=== PATIENT | female | born 1985 | race American Indian/Alaskan Native ===

== ENCOUNTER 2022-06-14 08:20 | Inpatient (IN) | payer OTHER ==
[2022-06-13 11:05] LABS: Hematocrit 31.8 % (30.3-42.9); Hemoglobin 10.4 gm/dl (10.1-14.3); Mean Corpuscular HGB Conc 33 % (30-34); Mean Corpuscular Volume 86 fl (79-97); Platelet Count 225 K/mm3 (140-440); Red Blood Count 3.69 M/mm3 (3.65-5.03); Red Cell Distribution Width 14.9 % (13.2-15.2)
--- NOTE | 2022-06-14 22:25 | Ultrasound Report ---
ULTRASOUND OBSTETRIC INDICATION / CLINICAL INFORMATION: Previous , evaluate for TOLAC. - Clinical Gestational Age (GA) in weeks, days: 39, 2 TECHNIQUE: Transabdominal. COMPARISON: None available. FINDINGS: Single intrauterine . Biparietal Diameter = 9.0 cm = 36, 3 weeks, days Head Circumference = 33.4 cm = 38, 2 weeks, days Abdominal Circumference = 34.3 cm = 38, 2 weeks, days Femur Length = 7.4 cm = 37, 6 weeks, days Average Ultrasound Age (AUA) = 37, 5 weeks, days Heart Rate: 137 beats per minute. Estimated Weight in grams (if calculated): 3349 Estimated Weight Growth Percentile (if calculated): 38% Position: cephalic. Cervix: closed. Placenta: anterior and free of the os. Amniotic Fluid Volume: decreased Amniotic Fluid Index (DEE) in cm (if calculated): 5.4. Maternal Adnexa: No significant abnormality. Lower uterine segment thickness ranged from 0.6 to 0.7 cm. IMPRESSION: 1. Single, living intrauterine with estimated sonographic age of 37, 5 weeks, days. 2. Decreased amniotic fluid index. 3. Lower uterine segment thickness measurements range from 0.6 to 0.7 cm. Signer Name: Dwayne Comer MD Signed: 06/14/2022 10:20 PM Workstation Name: [id number]
[2022-06-15] MEDS ORDERED: BUTORPHANOL 2 MG/1 ML INJ IV PRN (00:21)
[2022-06-15] MEDS ORDERED: CARBOPROST TROMETHAMINE 250 MCG/1 ML INJ IM PRN (00:21)
[2022-06-15] MEDS ORDERED: METHYLERGONOVINE MALEATE 0.2 MG/ML VIAL IM PRN (00:21)
[2022-06-15] MEDS ORDERED: fentaNYL 100 MCG/2 ML INJ IV PRN (00:21)
[2022-06-15] MEDS ORDERED: TERBUTALINE 1 MG/1 ML INJ SUB-Q PRN (00:21)
[2022-06-15] MEDS ORDERED: ACETAMINOPHEN 325 MG TAB PO PRN ×2 (00:21→19:10)
--- NOTE | 2022-06-15 00:31 | History and Physical Report ---
History of Present Illness Date of examination: 06/15/22 Date of admission: 06/14/22 09:53 Chief complaint: Trial of labor after (TOLAC), Obesity, Encounter for induction of labor History of present illness: The patient is 36-year-old at 39-3/7 weeks gestation who originally presented to OB triage for an elective repeat delivery and bilateral tubal ligation yesterday. The patient's case was postponed several times. The patient was offered to have this case rescheduled or attempt a trial of labor after (TOLAC). The patient denied vaginal bleeding, leakage of fluid, or contractions. There was good movement. The patient was counseled extensively according to [employer]COG Practice Bulletin 205 guidelines. Her previous delivery was 7 years ago in [place] and was performed secondary to distress per the patient's recollection and record. There is no operative report available at this time. Ac cording to [employer] Practice Bulletin, it is reasonable to presume that her previous delivery at a low transverse uterine scar. Based on this, this patient's risk of uterine rupture if attempting TOLAC is approximately 2%. According to the [facility] vaginal after () calculator, this patient's chance of successful vaginal delivery is approximately 30%. The patient understood that there is a risk of maternal , , hemorrhage, and hysterectomy. Voicing understanding of all of these risks, the patient wished to proceed with attempting a TOLAC in hopes of a successful . The patient is admitted to labor and delivery for induction of labor and to attempt a TOLAC. Past History Past Medical History: other (Obesity) Past Surgical History: cholecystectomy, section Family/Genetic History: diabetes, hypertension Social history: no significant social history - Obstetrical History Expected Date of Delivery: 06/19/22 Actual Gestation: 39 Week(s) 3 Day(s) : 2 Para: 1 Hx # Term Pregnancies: 0 Number of Pregnancies: 0 Spontaneous Abortions: 0 Induced : 0 Number of Living Children: 1 Medications and Allergies Allergies Allergy/AdvReac Type Severity Reaction Status Date / Time No Known Allergies Allergy Verified 06/15/22 00:42 Home Medications Medication Instructions Recorded Confirmed Last Taken Type No Known Home Medications [No 06/08/22 06/08/22 Unknown History Reported Home Medications] Active Meds: Active Medications Acetaminophen (Acetaminophen 325 Mg Tab) 650 mg PO Q4H PRN PRN Reason: Pain, Mild (1-3) Butorphanol Tartrate (Butorphanol 2 Mg/1 Ml Inj) 2 mg IV Q2H PRN PRN Reason: Pain, Moderate(4-6) LABOR PAIN Carboprost Tromethamine (Carboprost Tromethamine 250 Mcg/1 Ml Inj) 250 mcg IM ONCE PRN PRN Reason: Uterine Bleeding Fentanyl (Fentanyl 100 Mcg/2 Ml Inj) 100 mcg IV Q2H PRN PRN Reason: Pain,Severe (7-10) LABOR PAIN Oxytocin/Sodium Chloride (Pitocin/Ns 30 Unit/500ml) 30 units in 500 mls @ 2 mls/hr IV TITR LUCIUS; Protocol Lactated Ringer's (Lactated Ringers) 1,000 mls @ 125 mls/hr IV DIRECT LUCIUS Oxytocin/Sodium Chloride (Pitocin/Ns 30 Unit/500ml) 30 units in 500 mls @ 40 mls/hr IV TITR LUCIUS; Protocol Isosorbide Mononitrate (Isosorbide Mononitrate 20 Mg Tab) 40 mg PO ONCE STA Stop: 06/15/22 00:26 Methylergonovine Maleate (Methylergonovine Maleate 0.2 Mg/Ml Vial) 0.2 mg IM ONCE PRN PRN Reason: Uterine Bleeding Terbutaline Sulfate (Terbutaline 1 Mg/1 Ml Inj) 0.25 mg SUB-Q ONCE PRN PRN Reason: Hyperstimulation/Hypertonicity Review of Systems All systems: negative - Vital Signs Vital signs: Vital Signs Temp Pulse Resp BP Pulse Ox 98.7 F 85 16 121/64 99 06/13/22 10:20 06/13/22 10:20 06/13/22 10:20 06/13/22 10:20 06/13/22 10:20 Temp Pulse Resp BP Pulse Ox 98.7 F 82 16 118/56 98 06/13/22 10:20 06/15/22 00:25 06/13/22 10:20 06/14/22 10:56 06/15/22 00:25 - Physical Exam Breasts: Positive: normal Cardiovascular: Regular rate Lungs: Positive: Normal air movement Abdomen: Positive: normal appearance Genitourinary (Female): Positive: normal external genitalia, normal perenium Vulva: both: normal Vagina: Positive: normal moisture Uterus: Positive: enlarged Adnexa: both: normal Anus/Rectum: Positive: normal perianal skin Extremities: Positive: normal Deep Tendon Reflex Grade: Normal +2 - Obstetrical FHR: category 1 Uterine Contraction Monitor Mode: External Cervical Dilatation: 0 Cervical Effacement Percentage: 30 station: -3 Uterine Contraction Pattern: Absent Results Result Diagrams: 06/13/22 10:30 All other labs normal. Ultrasound: report reviewed, image reviewed, other (OB Ultrasound Limited= SLIUP. Vertex. Anterior placenta. EFW= 3349 g (38th %-ile). DEE= 5.4 cm. TOÑO thickness= 6-7 mm.) Assessment and Plan - Patient Problems (1) 39 weeks gestation of Current Visit: Yes Status: Acute Plan to address problem: care is up-to-date at [facility]. The patient had a normal 1 hour glucose tolerance test. She is GBS negative. (2) Obesity affecting in third trimester, antepartum Current Visit: Yes Status: Acute Plan to address problem: BMI is 47.6. (3) Desires (vaginal after ) trial Current Visit: Yes Status: Acute Plan to address problem: The patient was counseled extensively according to [employer]G Practice Bulletin 205 guidelines. Her previous delivery was 7 years ago in [place] and was performed secondary to distress per the patient's recollection and record. There is no operative report available at this time. According to [employer] Practice Bulletin, it is reasonable to presume that her previous delivery at a low transverse uterine scar. Based on this, this patient's risk of uterine rupture if attempting TOLAC is approximately 2%. According to the [facility] vaginal after () calculator, this patient's chance of successful vaginal delivery is approximately 30%. The patient understood that there is a risk of maternal , , hemorrhage, and hysterectomy. Voicing understanding of all of these risks, the patient wished to proceed with attempting a TOLAC in hopes of a successful . She signed the consent form. (4) Encounter for elective induction of labor Current Visit: Yes Status: Acute Plan to address problem: Ripen cervix with Cook's catheter and low-dose Pitocin. Augment cervical ripening with intravaginal Monoket. (5) AMA (advanced maternal age) multigravida 35+ Current Visit: Yes Status: Acute Plan to address problem: The patient declined to be seen by MFM. Noninvasive testing was low risk.
[2022-06-15] MEDS ORDERED: OXYTOCIN DRIP 30 UNITS/500 ML BAG IV SCH ×3 (01:00→20:00)
[2022-06-15 02:15] LABS: Hematocrit 33.8 % (30.3-42.9); Mean Corpuscular HGB Conc 33 % (30-34); Mean Corpuscular Volume 85 fl (79-97); Platelet Count 229 K/mm3 (140-440); Red Blood Count 3.96 M/mm3 (3.65-5.03); Red Cell Distribution Width 15.2 % (13.2-15.2)
--- NOTE | 2022-06-15 11:30 | Progress Note ---
Assessment and Plan A: IUP @ 39 Weeks Category I Tracing Previous X1 Maternal Obesity AMA GBS Negative P: [place] Bulb Out Start Pitocin Augmentation Subjective - Subjective Date of service: 06/15/22 Patient reports: movement normal Objective - Vital Signs Vital Signs: Vital Signs - 12hr 06/14/22 06/14/22 06/14/22 23:27 23:30 23:32 Temperature Pulse Rate 86 84 83 Respiratory Rate Blood Pressure O2 Sat by Pulse 94 95 94 Oximetry 06/14/22 06/14/22 06/14/22 23:35 23:40 23:43 Temperature Pulse Rate 84 86 81 Respiratory Rate Blood Pressure O2 Sat by Pulse 96 95 94 Oximetry 06/14/22 06/14/22 06/14/22 23:45 23:50 23:55 Temperature Pulse Rate 82 87 86 Respiratory Rate Blood Pressure O2 Sat by Pulse 100 99 99 Oximetry 06/15/22 06/15/22 06/15/22 00:00 00:05 00:10 Temperature Pulse Rate 83 80 88 Respiratory Rate Blood Pressure O2 Sat by Pulse 99 99 98 Oximetry 06/15/22 06/15/22 06/15/22 00:15 00:20 00:25 Temperature Pulse Rate 79 82 82 Respiratory Rate Blood Pressure O2 Sat by Pulse 99 98 98 Oximetry 06/15/22 06/15/22 06/15/22 00:30 00:35 00:40 Temperature Pulse Rate 88 86 84 Respiratory Rate Blood Pressure O2 Sat by Pulse 98 98 98 Oximetry 06/15/22 06/15/22 06/15/22 00:45 00:50 00:55 Temperature Pulse Rate 78 83 88 Respiratory Rate Blood Pressure O2 Sat by Pulse 99 97 98 Oximetry 06/15/22 06/15/22 06/15/22 01:00 01:05 01:10 Temperature Pulse Rate 94 H 82 90 Respiratory Rate Blood Pressure O2 Sat by Pulse 96 98 98 Oximetry 06/15/22 06/15/22 06/15/22 01:15 01:20 01:25 Temperature Pulse Rate 94 H 85 94 H Respiratory 14 Rate Blood Pressure O2 Sat by Pulse 98 99 100 Oximetry 06/15/22 06/15/22 06/15/22 01:30 01:35 01:40 Temperature Pulse Rate 84 85 83 Respiratory Rate Blood Pressure O2 Sat by Pulse 99 98 97 Oximetry 08/06/15/22 06/15/22 01:45 07:02 07:07 Temperature Pulse Rate 86 93 H 98 H Respiratory Rate Blood Pressure O2 Sat by Pulse 98 98 96 Oximetry 06/15/22 06/15/22 06/15/22 07:11 07:12 07:17 Temperature Pulse Rate 96 H 100 H 102 H Respiratory Rate Blood Pressure 96/55 O2 Sat by Pulse 98 98 Oximetry 06/15/22 06/15/22 06/15/22 07:22 07:27 07:32 Temperature Pulse Rate 88 86 93 H Respiratory Rate Blood Pressure O2 Sat by Pulse 98 100 100 Oximetry 06/15/22 06/15/22 06/15/22 07:37 07:41 07:42 Temperature Pulse Rate 90 91 H 90 Respiratory Rate Blood Pressure 99/60 O2 Sat by Pulse 100 98 Oximetry 06/15/22 06/15/22 06/15/22 07:47 07:48 07:51 Temperature Pulse Rate 96 H 98 H 87 Respiratory Rate Blood Pressure 102/62 O2 Sat by Pulse 94 91 Oximetry 06/15/22 06/15/22 06/15/22 07:52 07:53 07:57 Temperature Pulse Rate 94 H 95 H 89 Respiratory Rate Blood Pressure O2 Sat by Pulse 99 85 100 Oximetry 06/15/22 06/15/22 06/15/22 07:58 08:02 08:07 Temperature 98.2 F Pulse Rate 94 H 90 Respiratory 16 Rate Blood Pressure O2 Sat by Pulse 100 99 Oximetry 06/15/22 06/15/22 06/15/22 08:11 08:12 08:17 Temperature Pulse Rate 89 95 H 88 Respiratory Rate Blood Pressure 103/56 O2 Sat by Pulse 100 99 Oximetry 06/15/22 06/15/22 06/15/22 08:22 08:27 08:32 Temperature Pulse Rate 91 H 97 H 92 H Respiratory Rate Blood Pressure O2 Sat by Pulse 98 96 98 Oximetry 06/15/22 06/15/22 06/15/22 08:37 08:41 08:42 Temperature Pulse Rate 90 98 H 86 Respiratory Rate Blood Pressure 97/58 O2 Sat by Pulse 96 96 Oximetry 06/15/22 06/15/22 06/15/22 08:47 08:52 08:53 Temperature Pulse Rate 94 H 102 H 109 H Respiratory Rate Blood Pressure O2 Sat by Pulse 96 98 92 Oximetry 06/15/22 06/15/22 06/15/22 08:57 09:02 09:04 Temperature Pulse Rate 104 H 96 H 103 H Respiratory Rate Blood Pressure O2 Sat by Pulse 98 98 94 Oximetry 06/15/22 06/15/22 06/15/22 09:07 09:12 09:16 Temperature Pulse Rate 96 H 98 H 104 H Respiratory Rate Blood Pressure 100/60 O2 Sat by Pulse 97 98 91 Oximetry 06/15/22 06/15/22 06/15/22 09:17 09:22 09:27 Temperature Pulse Rate 102 H 94 H 89 Respiratory Rate Blood Pressure O2 Sat by Pulse 98 96 98 Oximetry 06/15/22 06/15/22 06/15/22 09:32 09:37 09:42 Temperature Pulse Rate 94 H 92 H 95 H Respiratory Rate Blood Pressure O2 Sat by Pulse 98 100 99 Oximetry 06/15/22 06/15/22 06/15/22 09:49 09:54 09:59 Temperature Pulse Rate 34 L 103 H 92 H Respiratory Rate Blood Pressure O2 Sat by Pulse 89 98 98 Oximetry 06/15/22 06/15/22 06/15/22 10:04 10:09 10:12 Temperature Pulse Rate 110 H 89 105 H Respiratory Rate Blood Pressure 117/59 O2 Sat by Pulse 97 97 Oximetry 06/15/22 06/15/22 06/15/22 10:14 10:18 10:19 Temperature Pulse Rate 90 104 H 94 H Respiratory Rate Blood Pressure O2 Sat by Pulse 98 92 98 Oximetry 06/15/22 06/15/22 06/15/22 10:24 10:29 10:34 Temperature Pulse Rate 90 105 H 107 H Respiratory Rate Blood Pressure O2 Sat by Pulse 98 98 97 Oximetry 06/15/22 06/15/22 06/15/22 10:39 10:42 10:44 Temperature Pulse Rate 107 H 102 H 98 H Respiratory Rate Blood Pressure 117/65 O2 Sat by Pulse 97 97 Oximetry 06/15/22 06/15/22 06/15/22 10:49 10:54 10:59 Temperature Pulse Rate 95 H 95 H 102 H Respiratory Rate Blood Pressure O2 Sat by Pulse 97 97 97 Oximetry 06/15/22 06/15/22 06/15/22 11:04 11:09 11:14 Temperature Pulse Rate 97 H 92 H 100 H Respiratory Rate Blood Pressure O2 Sat by Pulse 98 97 98 Oximetry 06/15/22 06/15/22 11:19 11:24 Temperature Pulse Rate 85 90 Respiratory Rate Blood Pressure O2 Sat by Pulse 100 97 Oximetry - Exam Breasts: normal Cardiovascular: Regular rate Lungs: Normal air movement Abdomen: Present: normal appearance, soft Uterus: Present: normal, firm FHR: category 1 Uterine Contraction Monitor Mode: External Cervical Dilatation: 5 (Intact; Vtx) Cervical Effacement Percentage: 60 station: -2 Uterine Contraction Pattern: Irregular Uterine Tone Measurement Phase: Resting Uterine Contraction Intensity: Mild - Labs Labs: Laboratory Results - last 24 hr 06/14/22 06/15/22 11:35 01:36 WBC 4.5 RBC 3.96 Hgb 11.0 Hct 33.8 MCV 85 MCH 28 MCHC 33 RDW 15.2 Plt Count 229 Blood Type AB POSITIVE Antibody Screen Negative
[2022-06-15] MEDS: LACTATED RINGERS 1,000 ML IV SCH ×3 (12:41→21:28)
[2022-06-15] MEDS ORDERED: HYDROcodone/ACETAMINOPHEN 7.5-325MG TAB PO SCH (14:00)
--- NOTE | 2022-06-15 14:53 | Progress Note ---
Assessment and Plan A: IUP @ 39 Weeks Category II Tracing Thick Meconium Stained Fluids Previous X1; Requesting Repeat Maternal Obesity AMA GBS Negative P: Internals x 2 Placed Stop Pitocin Augmentation Consult Dr. Montez for Repeat Subjective - Subjective Date of service: 06/15/22 Patient reports: movement normal, other (Patient Requesting Repeat C- section; States everything is happening like her last labor: Meconium and isolated late decels) Objective - Vital Signs Vital Signs: Vital Signs - 12hr 06/15/22 06/15/22 06/15/22 07:02 07:07 07:11 Temperature Pulse Rate 93 H 98 H 96 H Respiratory Rate Blood Pressure 96/55 O2 Sat by Pulse 98 96 Oximetry 06/15/22 06/15/22 06/15/22 07:12 07:17 07:22 Temperature Pulse Rate 100 H 102 H 88 Respiratory Rate Blood Pressure O2 Sat by Pulse 98 98 98 Oximetry 06/15/22 06/15/22 06/15/22 07:27 07:32 07:37 Temperature Pulse Rate 86 93 H 90 Respiratory Rate Blood Pressure O2 Sat by Pulse 100 100 100 Oximetry 06/15/22 06/15/22 06/15/22 07:41 07:42 07:47 Temperature Pulse Rate 91 H 90 96 H Respiratory Rate Blood Pressure 99/60 O2 Sat by Pulse 98 94 Oximetry 06/15/22 06/15/22 06/15/22 07:48 07:51 07:52 Temperature Pulse Rate 98 H 87 94 H Respiratory Rate Blood Pressure 102/62 O2 Sat by Pulse 91 99 Oximetry 06/15/22 06/15/22 06/15/22 07:53 07:57 07:58 Temperature 98.2 F Pulse Rate 95 H 89 Respiratory 16 Rate Blood Pressure O2 Sat by Pulse 85 100 Oximetry 06/15/22 06/15/22 06/15/22 08:02 08:07 08:11 Temperature Pulse Rate 94 H 90 89 Respiratory Rate Blood Pressure 103/56 O2 Sat by Pulse 100 99 Oximetry 06/15/22 06/15/22 06/15/22 08:12 08:17 08:22 Temperature Pulse Rate 95 H 88 91 H Respiratory Rate Blood Pressure O2 Sat by Pulse 100 99 98 Oximetry 08/31/22 08/31/22 08/31/22 08:27 08:32 08:37 Temperature Pulse Rate 97 H 92 H 90 Respiratory Rate Blood Pressure O2 Sat by Pulse 96 98 96 Oximetry 06/15/22 06/15/22 06/15/22 08:41 08:42 08:47 Temperature Pulse Rate 98 H 86 94 H Respiratory Rate Blood Pressure 97/58 O2 Sat by Pulse 96 96 Oximetry 06/15/22 06/15/22 06/15/22 08:52 08:53 08:57 Temperature Pulse Rate 102 H 109 H 104 H Respiratory Rate Blood Pressure O2 Sat by Pulse 98 92 98 Oximetry 06/15/22 06/15/22 06/15/22 09:02 09:04 09:07 Temperature Pulse Rate 96 H 103 H 96 H Respiratory Rate Blood Pressure O2 Sat by Pulse 98 94 97 Oximetry 06/15/22 06/15/22 06/15/22 09:12 09:16 09:17 Temperature Pulse Rate 98 H 104 H 102 H Respiratory Rate Blood Pressure 100/60 O2 Sat by Pulse 98 91 98 Oximetry 06/15/22 06/15/22 06/15/22 09:22 09:27 09:32 Temperature Pulse Rate 94 H 89 94 H Respiratory Rate Blood Pressure O2 Sat by Pulse 96 98 98 Oximetry 06/15/22 06/15/22 06/15/22 09:37 09:42 09:49 Temperature Pulse Rate 92 H 95 H 34 L Respiratory Rate Blood Pressure O2 Sat by Pulse 100 99 89 Oximetry 06/15/22 06/15/22 06/15/22 09:54 09:59 10:04 Temperature Pulse Rate 103 H 92 H 110 H Respiratory Rate Blood Pressure O2 Sat by Pulse 98 98 97 Oximetry 06/15/22 06/15/22 06/15/22 10:09 10:12 10:14 Temperature Pulse Rate 89 105 H 90 Respiratory Rate Blood Pressure 117/59 O2 Sat by Pulse 97 98 Oximetry 06/15/22 06/15/22 06/15/22 10:18 10:19 10:24 Temperature Pulse Rate 104 H 94 H 90 Respiratory Rate Blood Pressure O2 Sat by Pulse 92 98 98 Oximetry 06/15/22 06/15/22 06/15/22 10:29 10:34 10:39 Temperature Pulse Rate 105 H 107 H 107 H Respiratory Rate Blood Pressure O2 Sat by Pulse 98 97 97 Oximetry 06/15/22 06/15/22 06/15/22 10:42 10:44 10:49 Temperature Pulse Rate 102 H 98 H 95 H Respiratory Rate Blood Pressure 117/65 O2 Sat by Pulse 97 97 Oximetry 06/15/22 06/15/22 06/15/22 10:54 10:59 11:04 Temperature Pulse Rate 95 H 102 H 97 H Respiratory Rate Blood Pressure O2 Sat by Pulse 97 97 98 Oximetry 06/15/22 06/15/22 06/15/22 11:09 11:14 11:19 Temperature Pulse Rate 92 H 100 H 85 Respiratory Rate Blood Pressure O2 Sat by Pulse 97 98 100 Oximetry 06/15/22 06/15/22 06/15/22 11:24 11:29 11:30 Temperature Pulse Rate 90 54 L Respiratory Rate Blood Pressure O2 Sat by Pulse 97 78 L 78 L Oximetry 06/15/22 06/15/22 06/15/22 11:34 11:35 11:39 Temperature Pulse Rate 98 H 97 H 101 H Respiratory Rate Blood Pressure O2 Sat by Pulse 98 90 98 Oximetry 06/15/22 06/15/22 06/15/22 11:44 11:49 11:54 Temperature Pulse Rate 94 H 101 H 99 H Respiratory Rate Blood Pressure 105/62 O2 Sat by Pulse 98 97 97 Oximetry 06/15/22 06/15/22 06/15/22 11:59 12:04 12:06 Temperature Pulse Rate 99 H 90 93 H Respiratory Rate Blood Pressure O2 Sat by Pulse 95 95 94 Oximetry 06/15/22 06/15/22 06/15/22 12:09 12:11 12:13 Temperature Pulse Rate 92 H 92 H 92 H Respiratory Rate Blood Pressure 101/63 O2 Sat by Pulse 95 94 Oximetry 06/15/22 06/15/22 06/15/22 12:14 12:19 12:24 Temperature Pulse Rate 89 94 H 89 Respiratory Rate Blood Pressure O2 Sat by Pulse 96 96 96 Oximetry 06/15/22 06/15/22 06/15/22 12:29 12:34 12:39 Temperature Pulse Rate 89 89 90 Respiratory Rate Blood Pressure O2 Sat by Pulse 99 96 98 Oximetry 06/15/22 06/15/22 06/15/22 12:42 12:44 12:49 Temperature Pulse Rate 84 88 92 H Respiratory Rate Blood Pressure 112/68 O2 Sat by Pulse 100 97 Oximetry 08/06/15/22 06/15/22 12:54 12:59 13:04 Temperature Pulse Rate 86 85 80 Respiratory Rate Blood Pressure O2 Sat by Pulse 97 98 98 Oximetry 06/15/22 06/15/22 06/15/22 13:09 13:12 13:14 Temperature Pulse Rate 80 77 81 Respiratory Rate Blood Pressure 108/61 O2 Sat by Pulse 98 95 Oximetry 06/15/22 06/15/22 06/15/22 13:15 13:19 13:23 Temperature Pulse Rate 82 83 82 Respiratory Rate Blood Pressure O2 Sat by Pulse 94 95 92 Oximetry 06/15/22 06/15/22 06/15/22 13:24 13:28 13:29 Temperature Pulse Rate 76 82 83 Respiratory Rate Blood Pressure O2 Sat by Pulse 98 94 95 Oximetry 06/15/22 06/15/22 06/15/22 13:34 13:39 13:42 Temperature Pulse Rate 83 79 78 Respiratory Rate Blood Pressure 109/60 O2 Sat by Pulse 93 98 Oximetry 06/15/22 06/15/22 06/15/22 13:44 13:46 13:49 Temperature Pulse Rate 82 80 85 Respiratory Rate Blood Pressure O2 Sat by Pulse 96 93 95 Oximetry 06/15/22 06/15/22 06/15/22 13:54 13:55 13:59 Temperature Pulse Rate 85 85 85 Respiratory Rate Blood Pressure O2 Sat by Pulse 96 93 97 Oximetry 06/15/22 06/15/22 06/15/22 14:04 14:09 14:14 Temperature Pulse Rate 79 84 81 Respiratory Rate Blood Pressure O2 Sat by Pulse 98 98 99 Oximetry 06/15/22 06/15/22 06/15/22 14:19 14:24 14:29 Temperature Pulse Rate 78 90 86 Respiratory Rate Blood Pressure O2 Sat by Pulse 96 98 98 Oximetry 06/15/22 14:31 Temperature Pulse Rate 78 Respiratory Rate Blood Pressure 109/65 O2 Sat by Pulse Oximetry - Exam Breasts: normal Cardiovascular: Regular rate Lungs: Clear to auscultation, Normal air movement Abdomen: Present: normal appearance, soft, normal bowel sounds Uterus: Present: normal, firm, fundal height above umbilicus FHR: category 2 FHR comments: FHR: 148, moderate varability, +isolated late decels, +accels Uterine Contraction Monitor Mode: Internal Cervical Dilatation: 5 (Small amount of thick brown meconium stained fluids upon AROM at 1442) Cervical Effacement Percentage: 60 station: -2 Uterine Contraction Pattern: Irregular Uterine Tone Measurement Phase: Resting Uterine Contraction Intensity: Mild Extremities: normal - Labs Labs: Laboratory Results - last 24 hr 06/15/22 01:36 WBC 4.5 RBC 3.96 Hgb 11.0 Hct 33.8 MCV 85 MCH 28 MCHC 33 RDW 15.2 Plt Count 229
[2022-06-15] MEDS ORDERED: METOCLOPRAMIDE 10 MG/2 ML INJ IV NR (16:00)
[2022-06-15] MEDS ORDERED: ceFAZolin/STERILE WATER 2 GM/20 ML SYRINGE IV NR (16:00)
[2022-06-15] MEDS ORDERED: BICITRA ORAL LIQD 30ML PO SCH (16:00)
[2022-06-15] MEDS ORDERED: ePHEDrine SULFATE 50 MG/1 ML INJ ONE (16:27)
[2022-06-15] MEDS ORDERED: PHENYLEPHRINE/NS 1,000 MCG/10 ML SYRINGE (OR USE) IV ONE (16:27)
[2022-06-15] MEDS ORDERED: ONDANSETRON 4 MG/2 ML INJ ONE (16:27)
[2022-06-15] MEDS ORDERED: BUPIVACAINE/PF (0.5%) 5 MG/1 ML 30 ML VIAL INFILTRATI ONE (16:28)
[2022-06-15] MEDS ORDERED: FAMOTIDINE 20 MG/2 ML INJ IV SCH (16:30)
[2022-06-15] MEDS ORDERED: propofoL 200 MG/20 ML VIAL IV ONE ×2 (17:24→19:12)
[2022-06-15] MEDS ORDERED: SUCCINYLCHOLINE CHLORIDE 200 MG/10 ML INJ MDV ONE ×2 (17:25→19:12)
[2022-06-15] MEDS ORDERED: WATER FOR IRRIG STERILE 1,500 ML BOTTLE IR ONE (17:45)
[2022-06-15] MEDS ORDERED: SODIUM CHLORIDE 0.9% IRR 1,500 ML BOTTLE IR ONE (17:45)
[2022-06-15] MEDS ORDERED: LACTATED RINGERS 1,000 ML ONE ×2 (18:15→18:49)
[2022-06-15] MEDS ORDERED: fentaNYL 100 MCG/2 ML INJ ONE (18:22)
[2022-06-15] MEDS ORDERED: IBUPROFEN 600 MG TAB PO PRN (19:10)
[2022-06-15] MEDS ORDERED: LANOLIN/ZINC/DIMETHICONE (LANSINOH) 7 GM TP PRN (19:10)
[2022-06-15] MEDS ORDERED: WITCH HAZEL/ GLYCERIN PAD TP PRN (19:10)
[2022-06-15] MEDS ORDERED: NALOXONE 0.4 MG/1 ML INJ IV PRN ×2 (19:10→20:26)
[2022-06-15] MEDS ORDERED: MORPHINE 4 MG/1 ML INJ IV PRN ×2 (19:10→20:26)
[2022-06-15] MEDS ORDERED: MORPHINE 2 MG/1 ML INJ IV PRN (19:10)
[2022-06-15] MEDS ORDERED: HYDROcodone/ACETAMINOPHEN 5-325 MG TAB PO PRN (19:10)
[2022-06-15] MEDS ORDERED: PROMETHAZINE 25 MG RECT SUPP PR PRN ×2 (19:10→20:26)
[2022-06-15] MEDS ORDERED: SENNOSIDES 8.6 MG TAB PO PRN (19:10)
[2022-06-15] MEDS ORDERED: KETOROLAC 30 MG/1 ML INJ IV PRN ×2 (19:10)
[2022-06-15] MEDS ORDERED: SIMETHICONE 80 MG CHEW TAB PO PRN (19:10)
[2022-06-15] MEDS ORDERED: ONDANSETRON 4 MG/2 ML INJ IV PRN ×2 (19:10→20:26)
[2022-06-15] MEDS ORDERED: MAGNESIUM HYDROXIDE (MOM) ORAL LIQD UDC PO PRN (19:10)
--- NOTE | 2022-06-15 19:22 | Operative Report ---
Operative Report Operative Report: Date of surgery: 06/15/2022 Preoperative diagnoses: Reviewed section, 39 weeks gestation, failed attempt at , voluntary request for tubal sterilization, peritoneal adhesions Postoperative diagnoses: The same. Operation: Lower segment transverse delivery, lysis of adhesions, bilateral salpingectomy. Surgeon:Brendan Reyes MD Financial Compliance Examiner: Brissa Guillermo CRNA Anesthesia: Spinal block/general anesthesia Estimated blood loss: 400 mL Complications: None Findings: Live baby boy in vertex. Apgars 7/9. weight 6 pounds 15 ounces. The anterior aspect of the uterus was adherent to the anterior parietal peritoneum midway between the umbilicus and the symphysis pubis. The uterus, ovaries and fallopian tubes were grossly normal. There were no other pathologies within the lower abdomen and pelvis. Procedure in detail: The patient was taken to the operating room and given a spinal block. The bulk driver had to intubate the patient due to a high spinal block. Patient was placed in the straight supine position and a Hutchinson catheter was inserted. The patient was prepped in the abdomen. The drapes were placed. A timeout was done. With the go ahead from the bulk driver, a Pfannenstiel incision was made. This incision was carried across the subcutaneous layer to the fascia which was also divided transversely. The recti abdominis muscle flaps were stripped from the fascia using a combination of blunt and sharp dissections. The muscles were in the midline to gain access to the anterior parietal peritoneum which was divided after excluding any underlying viscera. The access to the peritoneal cavity was then widened by manual stretching. The bladder blade was applied. The utero vesicle peritoneal flap was divided transversely allowing the bladder to be displaced caudally. The uterine incision was placed in the lower segment transversely. The uterine incision was carried to the decidual layer. The uterine incision was extended on both sides using the bandage scissors. The amniotic sac was ruptured with clear fluid. The head was lifted out of the false maternal pelvis and delivered through the incision using fundal pressure. The airways were bulb suctioned beginning with the mouth. Continuing fundal pressure combined with traction on the mandibular processes of the jaw delivered the rest of the baby. The umbilical cord was double clamped and divided. The baby was carefully transferred to the pediatric team. The placenta was manually removed from the uterine cavity. The uterine cavity was explored and was empty of any placental remnants. The uterine incision was repaired in 2 layers with #1 Vicryl. The surgical line on the uterus was hemostatic. Each fallopian tube was excised from the fimbrial end to the cornua after pedicles of the mesosalpinges had been an isolated, tied off and divided. Hemostasis was checked multiple times was great. The taut band of adhesions described above was divided with the Bovie and the pedicles were hemostatic Blood and clots were cleared from the peritoneal cavity. The anterior parietal peritoneum was repaired with #1 Vicryl. The fascia was repaired with #1 Vicryl. The subcutaneous layer was made hemostatic using the Bovie before the skin was closed subcuticularly with 4-0 Vicryl. There were no complications. The estimated blood loss was 400 mL. All sponges and instrument counts were correct. Patient was safely transferred to the recovery room.
--- NOTE | 2022-06-15 19:33 | History and Physical Report ---
History of Present Illness Date of admission: 06/14/22 09:53 Past History Social history: no significant social history Medications and Allergies Allergies Allergy/AdvReac Type Severity Reaction Status Date / Time No Known Allergies Allergy Verified 06/15/22 00:42 Home Medications Medication Instructions Recorded Confirmed Last Taken Type No Known Home Medications [No 06/08/22 06/08/22 Unknown History Reported Home Medications] Active Meds: Active Medications Acetaminophen (Acetaminophen 325 Mg Tab) 650 mg PO Q4H PRN PRN Reason: Fever >100.5/SINGH Hydrocodone Bitart/Acetaminophen (Hydrocodone/Acetaminophen 5-325 Mg Tab) 1 each PO Q6H PRN PRN Reason: Pain, Moderate (4-6) Butorphanol Tartrate (Butorphanol 2 Mg/1 Ml Inj) 2 mg IV Q2H PRN PRN Reason: Pain, Moderate(4-6) LABOR PAIN Carboprost Tromethamine (Carboprost Tromethamine 250 Mcg/1 Ml Inj) 250 mcg IM ONCE PRN PRN Reason: Uterine Bleeding Fentanyl (Fentanyl 100 Mcg/2 Ml Inj) 100 mcg IV Q2H PRN PRN Reason: Pain,Severe (7-10) LABOR PAIN Oxytocin/Sodium Chloride (Pitocin/Ns 30 Unit/500ml) 30 units in 500 mls @ 2 mls/hr IV TITR LUCIUS; Protocol Last Admin: 06/15/22 12:30 Dose: 2 ml/hr, 2 mls/hr Lactated Ringer's (Lactated Ringers) 1,000 mls @ 125 mls/hr IV DIRECT LUCIUS Last Admin: 06/15/22 16:16 Dose: 125 mls/hr Oxytocin/Sodium Chloride (Pitocin/Ns 30 Unit/500ml) 30 units in 500 mls @ 40 mls/hr IV TITR LUCIUS; Protocol Oxytocin/Sodium Chloride (Pitocin/Ns 30 Unit/500ml) 30 units in 500 mls @ 40 mls/hr IV TITR LUCIUS; Protocol Cefazolin Sodium (Ancef/Ns 1 Gm/50 Ml) 1 gm in 50 mls @ 100 mls/hr IV Q8H LUCIUS Stop: 06/16/22 08:29 Ibuprofen (Ibuprofen 600 Mg Tab) 600 mg PO Q6H PRN PRN Reason: Pain, Mild (1-3) Ibuprofen (Ibuprofen 800 Mg Tab) 800 mg PO Q6H PRN PRN Reason: Pain, Moderate (4-6) Ketorolac Tromethamine (Ketorolac 30 Mg/1 Ml Inj) 15 mg IV Q6H PRN PRN Reason: Pain, Mild (1-3) Stop: 06/20/22 19:09 Ketorolac Tromethamine (Ketorolac 30 Mg/1 Ml Inj) 30 mg IV Q6H PRN PRN Reason: Pain, Moderate (4-6) Stop: 06/20/22 19:09 Magnesium Hydroxide (Magnesium Hydroxide (Mom) Oral Liqd Udc) 30 ml PO QHS PRN PRN Reason: Constip Unrelieved By Senna Methylergonovine Maleate (Methylergonovine Maleate 0.2 Mg/Ml Vial) 0.2 mg IM ONCE PRN PRN Reason: Uterine Bleeding Morphine Sulfate (Morphine 2 Mg/1 Ml Inj) 2 mg IV Q4H PRN PRN Reason: Pain, Moderate (4-6) Morphine Sulfate (Morphine 4 Mg/1 Ml Inj) 4 mg IV Q4H PRN PRN Reason: Pain , Severe (7-10) Multi-Ingredient Ointment (Lanolin/Zinc/Dimethicone (Lansinoh) 7 Gm) 1 applic TP PRN PRN PRN Reason: dryness/cracking Multivitamins/Iron/Calcium ( Oeh62-Ja Fumarate-Folic Acid Vit Tab) 1 each PO QDAY LUCIUS Naloxone HCl (Naloxone 0.4 Mg/1 Ml Inj) 0.1 mg IV Q2MIN PRN PRN Reason: Res Rate </= 8 or 02 SAT < 92% Ondansetron HCl (Ondansetron 4 Mg/2 Ml Inj) 4 mg IV Q8H PRN PRN Reason: Nausea And Vomiting Promethazine HCl (Promethazine 25 Mg Rect Supp) 25 mg GA Q6H PRN PRN Reason: N/V IF NPO AND NO IV ACCESS Senna (Sennosides 8.6 Mg Tab) 17.2 mg PO QHS PRN PRN Reason: Constipation Simethicone (Simethicone 80 Mg Chew Tab) 80 mg PO Q6H PRN PRN Reason: Gas pain Sodium Chloride (Sodium Chloride 0.9% 10 Ml Flush Syringe) 10 ml IV PRN LUCIUS Terbutaline Sulfate (Terbutaline 1 Mg/1 Ml Inj) 0.25 mg SUB-Q ONCE PRN PRN Reason: Hyperstimulation/Hypertonicity Witch Madiha/Glycerin (Witch Madiha/ Glycerin Pad) 1 each TP PRN PRN PRN Reason: Hemorrhoids/cleansing/soothing Exam - Constitutional Vitals: Temp Pulse Resp BP Pulse Ox 98.2 F 101 H 16 92/55 94 06/15/22 07:58 06/15/22 16:56 06/15/22 07:58 06/15/22 16:31 06/15/22 16:56 Results - Labs CBC & Chem 7: 06/15/22 01:36
--- NOTE | 2022-06-15 19:38 | Consultation ---
History of Present Illness - Reason for Consult Consult date: 06/15/22 Acute Respiratory failure Requesting physician: SHARRON JIMENEZ - History of Present Illness 36 YO Female with Obesity S/P C Section admitted directly to [facility]. Patient was undergoing spinal anesthesia in preparation for section. Shortly after her spinal anesthesia was administered the patient reported shortness of breath. Patient found to have a pulse oximetry in the 80s. Patient's subsequently intubated and placed on ventilatory support. Patient extubated and found to have respiratory distress. Patient placed on supplemental oxygen with mild improvement in symptoms. Patient admitted directly to ICU due to increased risk of worsening symptoms after medical stabilization. No reported nursing events. No reports of fever, chills, chest pain, palpitation, adductive cough, skin rash, recent contact, known exposure to COVID-19. Past History Past Medical History: other (see hpi) Past Surgical History: cholecystectomy, Social history: no significant social history Family history: hypertension Medications and Allergies Allergies Allergy/AdvReac Type Severity Reaction Status Date / Time No Known Allergies Allergy Verified 06/15/22 00:42 Home Medications Medication Instructions Recorded Confirmed Last Taken Type No Known Home Medications [No 06/08/22 06/08/22 Unknown History Reported Home Medications] Active Meds: Active Medications Acetaminophen (Acetaminophen 325 Mg Tab) 650 mg PO Q4H PRN PRN Reason: Fever >100.5/SINGH Hydrocodone Bitart/Acetaminophen (Hydrocodone/Acetaminophen 5-325 Mg Tab) 1 each PO Q6H PRN PRN Reason: Pain, Moderate (4-6) Butorphanol Tartrate (Butorphanol 2 Mg/1 Ml Inj) 2 mg IV Q2H PRN PRN Reason: Pain, Moderate(4-6) LABOR PAIN Carboprost Tromethamine (Carboprost Tromethamine 250 Mcg/1 Ml Inj) 250 mcg IM ONCE PRN PRN Reason: Uterine Bleeding Fentanyl (Fentanyl 100 Mcg/2 Ml Inj) 100 mcg IV Q2H PRN PRN Reason: Pain,Severe (7-10) LABOR PAIN Oxytocin/Sodium Chloride (Pitocin/Ns 30 Unit/500ml) 30 units in 500 mls @ 2 mls/hr IV TITR LUCIUS; Protocol Last Admin: 06/15/22 12:30 Dose: 2 ml/hr, 2 mls/hr Lactated Ringer's (Lactated Ringers) 1,000 mls @ 125 mls/hr IV DIRECT LUCIUS Last Admin: 06/15/22 16:16 Dose: 125 mls/hr Oxytocin/Sodium Chloride (Pitocin/Ns 30 Unit/500ml) 30 units in 500 mls @ 40 mls/hr IV TITR LUCIUS; Protocol Oxytocin/Sodium Chloride (Pitocin/Ns 30 Unit/500ml) 30 units in 500 mls @ 40 mls/hr IV TITR LUCIUS; Protocol Cefazolin Sodium (Ancef/Ns 1 Gm/50 Ml) 1 gm in 50 mls @ 100 mls/hr IV Q8H LUCIUS Stop: 06/16/22 08:29 Ibuprofen (Ibuprofen 600 Mg Tab) 600 mg PO Q6H PRN PRN Reason: Pain, Mild (1-3) Ibuprofen (Ibuprofen 800 Mg Tab) 800 mg PO Q6H PRN PRN Reason: Pain, Moderate (4-6) Ketorolac Tromethamine (Ketorolac 30 Mg/1 Ml Inj) 15 mg IV Q6H PRN PRN Reason: Pain, Mild (1-3) Stop: 06/20/22 19:09 Ketorolac Tromethamine (Ketorolac 30 Mg/1 Ml Inj) 30 mg IV Q6H PRN PRN Reason: Pain, Moderate (4-6) Stop: 06/20/22 19:09 Magnesium Hydroxide (Magnesium Hydroxide (Mom) Oral Liqd Udc) 30 ml PO QHS PRN PRN Reason: Constip Unrelieved By Senna Methylergonovine Maleate (Methylergonovine Maleate 0.2 Mg/Ml Vial) 0.2 mg IM ONCE PRN PRN Reason: Uterine Bleeding Morphine Sulfate (Morphine 2 Mg/1 Ml Inj) 2 mg IV Q4H PRN PRN Reason: Pain, Moderate (4-6) Morphine Sulfate (Morphine 4 Mg/1 Ml Inj) 4 mg IV Q4H PRN PRN Reason: Pain , Severe (7-10) Multi-Ingredient Ointment (Lanolin/Zinc/Dimethicone (Lansinoh) 7 Gm) 1 applic TP PRN PRN PRN Reason: dryness/cracking Multivitamins/Iron/Calcium ( Vws52-Dc Fumarate-Folic Acid Vit Tab) 1 ea ch PO QDAY LUCIUS Naloxone HCl (Naloxone 0.4 Mg/1 Ml Inj) 0.1 mg IV Q2MIN PRN PRN Reason: Res Rate </= 8 or 02 SAT < 92% Ondansetron HCl (Ondansetron 4 Mg/2 Ml Inj) 4 mg IV Q8H PRN PRN Reason: Nausea And Vomiting Promethazine HCl (Promethazine 25 Mg Rect Supp) 25 mg AL Q6H PRN PRN Reason: N/V IF NPO AND NO IV ACCESS Senna (Sennosides 8.6 Mg Tab) 17.2 mg PO QHS PRN PRN Reason: Constipation Simethicone (Simethicone 80 Mg Chew Tab) 80 mg PO Q6H PRN PRN Reason: Gas pain Sodium Chloride (Sodium Chloride 0.9% 10 Ml Flush Syringe) 10 ml IV PRN LUCIUS Terbutaline Sulfate (Terbutaline 1 Mg/1 Ml Inj) 0.25 mg SUB-Q ONCE PRN PRN Reason: Hyperstimulation/Hypertonicity Witch Madiha/Glycerin (Witch Madiha/ Glycerin Pad) 1 each TP PRN PRN PRN Reason: Hemorrhoids/cleansing/soothing Review of Systems Constitutional: no weight loss, no weight gain, no fever, no chills Ears, nose, mouth and throat: no ear pain, no ear discharge, no tinnitis, no nose pain, no nasal congestion Breasts: no change in shape, no swelling, no mass Cardiovascular: shortness of breath, no chest pain, no orthopnea, no palpitations, no rapid/irregular heart beat, no edema Respiratory: no cough, no hemoptysis Gastrointestinal: no abdominal pain, no vomiting, no diarrhea, no hematemesis Genitourinary Female: no pelvic pain, no flank pain, no dysuria, no urinary frequency, no urgency Rectal: no pain, no incontinence Musculoskeletal: no neck stiffness, no neck pain, no shooting arm pain, no arm numbness/tingling, no low back pain, no leg numbness/tingling Integumentary: no rash, no redness, no sores, no wounds Neurological: no head injury, no paralysis, no numbness, no seizures, no tremors, no ataxia Psychiatric: no memory loss, no sleep disturbances, no hypersomnia, no change in libido, no suicidal ideation Endocrine: no cold intolerance, no polyphagia, no excessive thirst Hematologic/Lymphatic: no easy bruising, no easy bleeding Exam - Constitutional Vitals: Temp Pulse Resp BP Pulse Ox 98.2 F 101 H 16 92/55 94 06/15/22 07:58 06/15/22 16:56 06/15/22 07:58 06/15/22 16:31 06/15/22 16:56 General appearance: Present: mild distress, obese - EENT Eyes: Present: PERRL ENT: hearing intact, clear oral mucosa - Respiratory Respiratory effort: normal Respiratory: bilateral: diminished - Cardiovascular Heart Sounds: Present: S1 & S2. Absent: rub, click - Extremities Extremities: pulses symmetrical, No edema Peripheral Pulses: within normal limits - Abdominal General gastrointestinal: Present: soft, other (Appropriate tender, incision clean dry and intact) Female genitourinary: Present: normal - Integumentary Integumentary: Present: clear, warm, dry - Musculoskeletal Musculoskeletal: gait normal, strength equal bilaterally - Psychiatric Psychiatric: appropriate mood/affect, intact judgment & insight - Neurologic Neurologic: CNII-XII intact, moves all extremities Results - Labs CBC & Chem 7: 06/15/22 01:36 Assessment and Plan - Patient Problems (1) Acute hypoxemic respiratory failure Current Visit: Yes Status: Acute Plan to address problem: Patient mated to IMCU. Continue supplemental oxygen. Noninvasive positive pressure ventilation as clinically indicated. Supplemental oxygen, pulse oximetry, nebulizer therapy, pulmonary toilet, early ambulation, chest x-ray, arterial blood gas.. (2) Obesity hypoventilation syndrome Current Visit: Yes Status: Acute Plan to address problem: Balanced diet, increase physical activity discharge, outpatient pulmonary follow -up for sleep study.
[2022-06-15] MEDS ORDERED: PROMETHAZINE 25 MG TAB PO PRN (20:26)
[2022-06-15] MEDS ORDERED: HYDROmorphone 1 MG/1 ML INJ IV PRN (20:26)
--- NOTE | 2022-06-15 20:29 | Anesthesia Day of Surgery ---
Anesthesia Day of Surgery - Day of Surgery Patient Examined: Yes Patient H&P Reviewed: Yes Patient is NPO: Yes Beta Blockers: No Cardiac Clearance: No Pulmonary Clearance: No Vinod's Test: N/A
--- NOTE | 2022-06-15 20:29 | Anesthesia Consultation ---
Anesthesia Consult and Med Hx Date of service: 06/15/22 - Airway Anesthetic Teeth Evaluation: Good ROM Head & Neck: Adequate Mental/Hyoid Distance: Adequate Mallampati Class: Class II Intubation Access Assessment: Good - Pulmonary Exam CTA: Yes - Cardiac Exam Cardiac Exam: RRR - Pre-Operative Health Status ASA Pre-Surgery Classification: ASA2 Proposed Anesthetic Plan: General, Spinal - Pulmonary Hx Smoking: No Hx Asthma: No Hx Respiratory Symptoms: No SOB: No COPD: No Home Oxygen Therapy: No Hx Pneumonia: No Hx Sleep Apnea: No - Cardiovascular System Hx Hypertension: No Hx Coronary Artery Disease: No Hx Heart Attack/AMI: No Hx Angina: No Hx Percutaneous Transluminal Coronary Angioplasty (PTCA): No Hx Cardia Arrhythmia: No Hx Pacemaker: No Hx Internal Defibrillator: No Hx Valvular Heart Disease: No Hx Heart Murmur: No Hx Peripheral Vascular Disease: No - Central Nervous System Hx Neuromuscular Disorder: No Hx Seizures: No CVA: No Hx Back Pain: Yes (HERNIATED DISK, SCIATICA ) Hx Psychiatric Problems: No - Gastrointestinal Hx Ulcer: No Hx Gastroesophageal Reflux Disease: No - Endocrine Hx Renal Disease: No Hx End Stage Renal Disease: No Hx Cirrhosis: No Hx Liver Disease: No Hx Insulin Dependent Diabetes: No Hx Non-Insulin Dependent Diabetes: No Hx Thyroid Disease: No Hx Hypothyroidism: No Hx Hyperthyroidism: No - Hematic Hx Anemia: No Hx Sickle Cell Disease: No - Other Systems Hx Alcohol Use: No Hx Substance Use: No Hx Cancer: No Hx Obesity: Yes
--- NOTE | 2022-06-15 20:31 | Progress Note ---
Spinal Anesthesia Block - Spinal Anesthesia Block Start Time: 17:15 Stop Time: 17:25 Performed by:: DANITZA ALCARAZ Procedure: The patient was placed in a sitting position on the OR table and monitors applied. A timeout was performed immediately prior to the start of the procedure. The patient was Prepped and draped in a sterile fashion and the skin was localized with 3 mL 1% lidocaine at L[4]-L[5] interspace. An introducer was placed into the back between L4-L5 and a 25g spinal needle was advanced into the intrathecal space until clear, free flowing CSF was observed. 1.8cc of 0.75% hyperbaric bupivacaine + 5mcg Precedex was injected into the intrathecal space and the spinal needle was removed. The patient tolerated the procedure well and there were no immediate complications noted. Shortly after laying pt supine she started to complain of not being able to breath. She then lost the ability to speak and her O2 sats dropped into the 80's. Pt was immediately intubated and was stabilized and the procedure continued.
--- NOTE | 2022-06-15 20:35 | Progress Note ---
Subjective Date of service: 06/15/22 Principal diagnosis: High Spinal Interval history: Pt was given a spinal for a C/S and shortly afterwards experienced shortness of breath and the inability to speak. Her sta's dropped into the 80's and she was immediately intubated. She became stable and the procedure was performed. After the procedure the pt was able to spontaneously ventilate and was able to beextubated. Pt was stable, awake, alert and maintaining her sat's at 99. I spoke with the hospitalist who admitted [facility] a [facility] Objective - Constitutional Vitals: Vital Signs - 12hr 06/15/22 06/15/22 06/15/22 08:32 08:37 08:41 Pulse Rate 92 H 90 98 H Blood Pressure 97/58 O2 Sat by Pulse 98 96 Oximetry 06/15/22 06/15/22 06/15/22 08:42 08:47 08:52 Pulse Rate 86 94 H 102 H Blood Pressure O2 Sat by Pulse 96 96 98 Oximetry 06/15/22 06/15/22 06/15/22 08:53 08:57 09:02 Pulse Rate 109 H 104 H 96 H Blood Pressure O2 Sat by Pulse 92 98 98 Oximetry 06/15/22 06/15/22 06/15/22 09:04 09:07 09:12 Pulse Rate 103 H 96 H 98 H Blood Pressure 100/60 O2 Sat by Pulse 94 97 98 Oximetry 06/15/22 06/15/22 06/15/22 09:16 09:17 09:22 Pulse Rate 104 H 102 H 94 H Blood Pressure O2 Sat by Pulse 91 98 96 Oximetry 06/15/22 06/15/22 06/15/22 09:27 09:32 09:37 Pulse Rate 89 94 H 92 H Blood Pressure O2 Sat by Pulse 98 98 100 Oximetry 06/15/22 06/15/22 06/15/22 09:42 09:49 09:54 Pulse Rate 95 H 34 L 103 H Blood Pressure O2 Sat by Pulse 99 89 98 Oximetry 06/15/22 06/15/22 06/15/22 09:59 10:04 10:09 Pulse Rate 92 H 110 H 89 Blood Pressure O2 Sat by Pulse 98 97 97 Oximetry 06/15/22 06/15/22 06/15/22 10:12 10:14 10:18 Pulse Rate 105 H 90 104 H Blood Pressure 117/59 O2 Sat by Pulse 98 92 Oximetry 06/15/22 06/15/22 06/15/22 10:19 10:24 10:29 Pulse Rate 94 H 90 105 H Blood Pressure O2 Sat by Pulse 98 98 98 Oximetry 06/15/22 06/15/22 06/15/22 10:34 10:39 10:42 Pulse Rate 107 H 107 H 102 H Blood Pressure 117/65 O2 Sat by Pulse 97 97 Oximetry 06/15/22 06/15/22 06/15/22 10:44 10:49 10:54 Pulse Rate 98 H 95 H 95 H Blood Pressure O2 Sat by Pulse 97 97 97 Oximetry 06/15/22 06/15/22 06/15/22 10:59 11:04 11:09 Pulse Rate 102 H 97 H 92 H Blood Pressure O2 Sat by Pulse 97 98 97 Oximetry 06/15/22 06/15/22 06/15/22 11:14 11:19 11:24 Pulse Rate 100 H 85 90 Blood Pressure O2 Sat by Pulse 98 100 97 Oximetry 06/15/22 06/15/22 06/15/22 11:29 11:30 11:34 Pulse Rate 54 L 98 H Blood Pressure O2 Sat by Pulse 78 L 78 L 98 Oximetry 06/15/22 06/15/22 06/15/22 11:35 11:39 11:44 Pulse Rate 97 H 101 H 94 H Blood Pressure 105/62 O2 Sat by Pulse 90 98 98 Oximetry 06/15/22 06/15/22 06/15/22 11:49 11:54 11:59 Pulse Rate 101 H 99 H 99 H Blood Pressure O2 Sat by Pulse 97 97 95 Oximetry 06/15/22 06/15/22 06/15/22 12:04 12:06 12:09 Pulse Rate 90 93 H 92 H Blood Pressure O2 Sat by Pulse 95 94 95 Oximetry 06/15/22 06/15/22 06/15/22 12:11 12:13 12:14 Pulse Rate 92 H 92 H 89 Blood Pressure 101/63 O2 Sat by Pulse 94 96 Oximetry 06/15/22 06/15/22 06/15/22 12:19 12:24 12:29 Pulse Rate 94 H 89 89 Blood Pressure O2 Sat by Pulse 96 96 99 Oximetry 06/15/22 06/15/22 06/15/22 12:34 12:39 12:42 Pulse Rate 89 90 84 Blood Pressure 112/68 O2 Sat by Pulse 96 98 Oximetry 06/15/22 06/15/22 06/15/22 12:44 12:49 12:54 Pulse Rate 88 92 H 86 Blood Pressure O2 Sat by Pulse 100 97 97 Oximetry 06/15/22 06/15/22 06/15/22 12:59 13:04 13:09 Pulse Rate 85 80 80 Blood Pressure O2 Sat by Pulse 98 98 98 Oximetry 06/15/22 06/15/22 06/15/22 13:12 13:14 13:15 Pulse Rate 77 81 82 Blood Pressure 108/61 O2 Sat by Pulse 95 94 Oximetry 06/15/22 06/15/22 06/15/22 13:19 13:23 13:24 Pulse Rate 83 82 76 Blood Pressure O2 Sat by Pulse 95 92 98 Oximetry 06/15/22 06/15/22 06/15/22 13:28 13:29 13:34 Pulse Rate 82 83 83 Blood Pressure O2 Sat by Pulse 94 95 93 Oximetry 06/15/22 06/15/22 06/15/22 13:39 13:42 13:44 Pulse Rate 79 78 82 Blood Pressure 109/60 O2 Sat by Pulse 98 96 Oximetry 06/15/22 06/15/22 06/15/22 13:46 13:49 13:54 Pulse Rate 80 85 85 Blood Pressure O2 Sat by Pulse 93 95 96 Oximetry 06/15/22 06/15/22 06/15/22 13:55 13:59 14:04 Pulse Rate 85 85 79 Blood Pressure O2 Sat by Pulse 93 97 98 Oximetry 06/15/22 06/15/22 06/15/22 14:09 14:14 14:19 Pulse Rate 84 81 78 Blood Pressure O2 Sat by Pulse 98 99 96 Oximetry 06/15/22 06/15/22 06/15/22 14:24 14:29 14:31 Pulse Rate 90 86 78 Blood Pressure 109/65 O2 Sat by Pulse 98 98 Oximetry 06/15/22 06/15/22 06/15/22 14:57 15:02 15:07 Pulse Rate 80 78 80 Blood Pressure O2 Sat by Pulse 97 96 96 Oximetry 06/15/22 06/15/22 06/15/22 15:12 15:17 15:22 Pulse Rate 83 83 87 Blood Pressure O2 Sat by Pulse 96 97 98 Oximetry 06/15/22 06/15/22 06/15/22 15:24 15:27 15:31 Pulse Rate 88 90 85 Blood Pressure 98/55 O2 Sat by Pulse 94 99 Oximetry 06/15/22 06/15/22 06/15/22 15:32 15:37 15:42 Pulse Rate 82 83 87 Blood Pressure O2 Sat by Pulse 98 98 99 Oximetry 06/15/22 06/15/22 06/15/22 15:47 15:52 15:57 Pulse Rate 86 84 84 Blood Pressure O2 Sat by Pulse 100 97 99 Oximetry 06/15/22 06/15/22 06/15/22 16:01 16:02 16:07 Pulse Rate 85 100 H 85 Blood Pressure 91/53 O2 Sat by Pulse 100 99 Oximetry 06/15/22 06/15/22 06/15/22 16:12 16:17 16:22 Pulse Rate 92 H 93 H 95 H Blood Pressure O2 Sat by Pulse 98 99 98 Oximetry 06/15/22 06/15/22 06/15/22 16:27 16:31 16:32 Pulse Rate 91 H 90 93 H Blood Pressure 92/55 O2 Sat by Pulse 99 97 Oximetry 06/15/22 06/15/22 06/15/22 16:37 16:42 16:47 Pulse Rate 92 H 101 H 95 H Blood Pressure O2 Sat by Pulse 100 96 100 Oximetry 06/15/22 06/15/22 06/15/22 16:50 16:52 16:56 Pulse Rate 92 H 93 H 101 H Blood Pressure O2 Sat by Pulse 94 98 94 Oximetry - Labs CBC & Chem 7: 06/15/22 01:36
--- NOTE | 2022-06-15 20:37 | XRay Report ---
CHEST 1 VIEW 06/15/2022 7:31 PM INDICATION / CLINICAL INFORMATION: dypsnea. COMPARISON: None available. FINDINGS: SUPPORT DEVICES: None. HEART / MEDIASTINUM: No significant abnormality. LUNGS / PLEURA: No significant pulmonary or pleural abnormality. No pneumothorax. ADDITIONAL FINDINGS: No significant additional findings. IMPRESSION: No acute abnormality. Signer Name: Benjamin Zepeda MD Signed: 06/15/2022 8:33 PM Workstation Name: [id number]
[2022-06-15] MEDS ORDERED: fentaNYL-BUPIV 2 MCG/ML-0.125% 200 MCG/100 ML BAG EPIDURAL SCH (21:00)
[2022-06-15] MEDS: HYDROmorphone 1 MG/1 ML INJ IV PRN (21:27)
[2022-06-16] MEDS: ceFAZolin/NS 1 GM/50 ML 1 GM/50 ML BAG IV SCH ×2 (00:24→08:54)
[2022-06-16] MEDS: HYDROmorphone 1 MG/1 ML INJ IV PRN ×2 (03:37→20:29)
[2022-06-16] MEDS: LACTATED RINGERS 1,000 ML IV SCH (03:41)
--- NOTE | 2022-06-16 11:21 | Consultation ---
History of Present Illness Consult date: 06/16/22 Requesting physician: CARISSA HILL Reason for consult: dyspnea History of present illness: 36 y/o female at least s/p on yesterday admitted to IMCU as she developed respiratory distress post Epidural placement prior to beginning. Per notes patient complained of inability to breathe, became ta chypnic and sats dropped to the 80's. Emergently intubated, stabilzed and then section was done. Subsequently post procedure, patient was able to be awoken and extubated so patient was admitted to step down via the hospitalist. ICU was not consulted as the patient was extubated. This am, IMS asked for pulmonary consultation given patients prior history of COVID. Per patient no breathing issues prior to COVID. First was fine, then developed COVID and per patient, breathing has not been normal since. She was hospitalized in [place] for COVID and required oxygen even at discharge but was weaned off quickly. No prior history of lung disease. This am on room air. Mild abdom inal pain but good sats. Past History Past Medical History: other (prior COVID infection in 2019) Past Surgical History: cholecystectomy, Social history: no significant social history Family history: hypertension Medications and Allergies Allergies Allergy/AdvReac Type Severity Reaction Status Date / Time No Known Allergies Allergy Verified 06/15/22 00:42 Home Medications Medication Instructions Recorded Confirmed Last Taken Type No Known Home Medications [No 06/08/22 06/08/22 Unknown History Reported Home Medications] Active Meds: Active Medications Acetaminophen (Acetaminophen 325 Mg Tab) 650 mg PO Q4H PRN PRN Reason: Fever >100.5/SINGH Hydrocodone Bitart/Acetaminophen (Hydrocodone/Acetaminophen 5-325 Mg Tab) 1 each PO Q6H PRN PRN Reason: Pain, Moderate (4-6) Butorphanol Tartrate (Butorphanol 2 Mg/1 Ml Inj) 2 mg IV Q2H PRN PRN Reason: Pain, Moderate(4-6) LABOR PAIN Carboprost Tromethamine (Carboprost Tromethamine 250 Mcg/1 Ml Inj) 250 mcg IM ONCE PRN PRN Reason: Uterine Bleeding Fentanyl (Fentanyl 100 Mcg/2 Ml Inj) 100 mcg IV Q2H PRN PRN Reason: Pain,Severe (7-10) LABOR PAIN Hydromorphone HCl (Hydromorphone 1 Mg/1 Ml Inj) 0.5 mg IV Q5M PRN PRN Reason: BREAK Stop: 06/16/22 20:25 Hydromorphone HCl (Hydromorphone 1 Mg/1 Ml Inj) 0.5 mg IV Q4H PRN PRN Reason: breakthrough pain > 7/10 Last Admin: 06/16/22 03:37 Dose: 0.5 mg Oxytocin/Sodium Chloride (Pitocin/Ns 30 Unit/500ml) 30 units in 500 mls @ 2 mls/hr IV TITR LUCIUS; Protocol Last Admin: 06/15/22 12:30 Dose: 2 ml/hr, 2 mls/hr Lactated Ringer's (Lactated Ringers) 1,000 mls @ 125 mls/hr IV DIRECT LUCIUS Last Admin: 06/16/22 03:41 Dose: 125 mls/hr Oxytocin/Sodium Chloride (Pitocin/Ns 30 Unit/500ml) 30 units in 500 mls @ 40 mls/hr IV TITR LUCIUS; Protocol Oxytocin/Sodium Chloride (Pitocin/Ns 30 Unit/500ml) 30 units in 500 mls @ 40 mls/hr IV TITR LUCIUS; Protocol Fentanyl/Bupivacaine/Sodium Chlor (Fentanyl-Bupiv 2 Mcg/Ml-0.125%) 200 mcg in 100 mls @ 8 mls/hr EPIDURAL TITRATE LUCIUS; Protocol Ibuprofen (Ibuprofen 600 Mg Tab) 600 mg PO Q6H PRN PRN Reason: Pain, Mild (1-3) Ibuprofen (Ibuprofen 800 Mg Tab) 800 mg PO Q6H PRN PRN Reason: Pain, Moderate (4-6) Ketorolac Tromethamine (Ketorolac 30 Mg/1 Ml Inj) 15 mg IV Q6H PRN PRN Reason: Pain, Mild (1-3) Stop: 06/20/22 19:09 Ketorolac Tromethamine (Ketorolac 30 Mg/1 Ml Inj) 30 mg IV Q6H PRN PRN Reason: Pain, Moderate (4-6) Stop: 06/20/22 19:09 Last Admin: 06/16/22 07:05 Dose: 30 mg Magnesium Hydroxide (Magnesium Hydroxide (Mom) Oral Liqd Udc) 30 ml PO QHS PRN PRN Reason: Constip Unrelieved By Senna Methylergonovine Maleate (Methylergonovine Maleate 0.2 Mg/Ml Vial) 0.2 mg IM ONCE PRN PRN Reason: Uterine Bleeding Morphine Sulfate (Morphine 2 Mg/1 Ml Inj) 2 mg IV Q4H PRN PRN Reason: Pain, Moderate (4-6) Morphine Sulfate (Morphine 4 Mg/1 Ml Inj) 4 mg IV Q4H PRN PRN Reason: Pain , Severe (7-10) Morphine Sulfate (Morphine 4 Mg/1 Ml Inj) 2.5 mg IV Q15M PRN PRN Reason: BREAK Stop: 06/16/22 20:25 Multi-Ingredient Ointment (Lanolin/Zinc/Dimethicone (Lansinoh) 7 Gm) 1 applic T P PRN PRN PRN Reason: dryness/cracking Multivitamins/Iron/Calcium ( [id number]-Eh Fumarate-Folic Acid Vit Tab) 1 each PO QDAY LUCIUS Naloxone HCl (Naloxone 0.4 Mg/1 Ml Inj) 0.2 mg IV Q2MIN PRN PRN Reason: Res Rate </= 8 or 02 SAT < 92% Ondansetron HCl (Ondansetron 4 Mg/2 Ml Inj) 4 mg IV Q8H PRN PRN Reason: Nausea And Vomiting Promethazine HCl (Promethazine 25 Mg Tab) 25 mg PO Q6H PRN PRN Reason: Nausea And Vomiting Promethazine HCl (Promethazine 25 Mg Rect Supp) 25 mg [place] Q6H PRN PRN Reason: Nausea And Vomiting Senna (Sennosides 8.6 Mg Tab) 17.2 mg PO QHS PRN PRN Reason: Constipation Simethicone (Simethicone 80 Mg Chew Tab) 80 mg PO Q6H PRN PRN Reason: Gas pain Sodium Chloride (Sodium Chloride 0.9% 10 Ml Flush Syringe) 10 ml IV PRN LUCIUS Sodium Chloride (Sodium Chloride 0.9% 10 Ml Flush Syringe) 10 ml IV PRN PRN PRN Reason: LINE FLUSH Terbutaline Sulfate (Terbutaline 1 Mg/1 Ml Inj) 0.25 mg SUB-Q ONCE PRN PRN Reason: Hyperstimulation/Hypertonicity Witch Madiha/Glycerin (Witch Madiha/ Glycerin Pad) 1 each TP PRN PRN PRN Reason: Hemorrhoids/cleansing/soothing Review of Systems All systems: negative Physical Examination Vital signs: Vital Signs Temp Pulse Resp BP Pulse Ox 98.7 F 85 16 121/64 99 06/13/22 10:20 06/13/22 10:20 06/13/22 10:20 06/13/22 10:20 06/13/22 10:20 General appearance: no acute distress, alert, other (morbidly obese) Eyes: non-icteric ENT: oropharynx moist Neck: supple, other (large in circumference) Effort: normal Ascultation: Bilateral: clear Percussion: Bilateral: not dull Tactile fremitus: Bilateral: normal Cardiovascular: regular rate and rhythm Gastrointestinal: other (post surgical changes) Results - Laboratory Findings CBC and BMP: 06/15/22 01:36 - Diagnostic Findings Chest x-ray: image reviewed (not a good inspiratory film, heart appears large but parenchyma are clear) Assessment and Plan 36 y/o obese female, s/p admitted for respiratory failure follow post administration spinal anesthesia requiring intubation. 1. Needs outpatient follow up for full PFT and JACKSON screening given obesity and neck size 2. Will obtain noncontrast CT of chest here to get a better look at lung parenchyma 3. 2D echo to evaluate heart size and function, along with any evidence of pulmonary HTN 4. Weaned to room air. Suggest walk test prior to discharge 5. Incentive spirometry to bedside for use. Thanks for consult, will continue to follow.
[2022-06-16 11:27] LABS: Hematocrit 29.3 % (30.3-42.9); Hemoglobin 9.8 gm/dl (10.1-14.3)
--- NOTE | 2022-06-16 11:31 | Progress Note ---
Assessment and Plan Assessment and plan: 36 YO Female with Obesity S/P C Section admitted directly to [facility]. Patient was undergoing spinal anesthesia in preparation for section. Shortly after her spinal anesthesia was administered the patient reported shortness of breath. Patient found to have a pulse oximetry in the 80s. Patient's subsequently intubated and placed on ventilatory support. Patient extubated and found to have respiratory distress. Patient placed on supplemental oxygen with mild improvement in symptoms. Patient admitted directly to ICU due to increased risk of worsening symptoms after medical stabilization. No reported nursing events. No reports of fever, chills, chest pain, palpitation, adductive cough, skin rash, recent contact, known exposure to COVID-19. Past History Past Medical History: other (see hpi) Past Surgical History: cholecystectomy, Social history: no significant social history Family history: hypertension Acute hypoxic respiratory failure secondary anesthesia Acute Blood loss Anemia- Expected post Obesity hypoventilation syndrome day 2 status post Morbid obesity BMI 47.6 History of COVID-19 Plan Patient significantly improved this morning no further shortness of breath. I did obtain pulmonary consultation for further evaluation. I did discuss with the patient importance of a full PFT and JACKSON screening after she has lost her which she verbalized understanding. Outpatient follow-up with fmd teacher also recommended. Pulmonary has requested a noncontrast CT to better look at the lung parenchyma. 2D echo to evaluate any pulmonary hypertension. An incentive spirometer. Patient is Stable to return to mother-baby unit DVT and GI prophylaxis Counseling on obesity and weight loss discussed 15 tenderness patient verbalized understanding History Interval history: Patient seen and examined, resting comfortable, no new compliants. Patient oxygen saturation is 100% on room air at this time. Hospitalist Physical - Physical exam Narrative exam: VITAL SIGNS: Reviewed. GENERAL: The patient appears normally developed, obese vital signs as docum ented. HEAD: No signs of head trauma. EYES: Pupils are equal. Extraocular motions intact. EARS: Hearing grossly intact. MOUTH: Oropharynx is normal. NECK: No adenopathy, no JVD. CHEST: Chest with clear breath sounds bilaterally. No wheezes, rales, or rhonchi. CARDIAC: Regular rate and rhythm. S1 and S2, without murmurs, gallops, or rubs. VASCULAR: No Edema. Peripheral pulses normal and equal in all extremities. ABDOMEN: (Appropriate tender, incision clean dry and intact) at site of soft, non distended. No rebound or guarding, and no masses palpated. Bowel Sounds normal. MUSCULOSKELETAL: Good range of motion of all major joints. Extremities without clubbing, cyanosis or edema. NEUROLOGIC EXAM: Alert and oriented x 3 No focal sensory or strength deficits. Speech normal. Follows commands. PSYCHIATRIC: Mood normal. SKIN: detail exam as documented in skin assessment - Constitutional Vitals: Temp Pulse Resp BP Pulse Ox 98.2 F 102 H 27 H 121/69 96 06/16/22 08:00 06/16/22 09:00 06/16/22 09:00 06/16/22 09:00 06/16/22 08:38 General appearance: Present: mild distress, obese Results - Labs CBC & Chem 7: 06/16/22 11:05 Labs: Laboratory Last Values WBC 4.5 K/mm3 (4.5-11.0) 06/15/22 01:36 RBC 3.96 M/mm3 (3.65-5.03) 06/15/22 01:36 Hgb 9.8 gm/dl (10.1-14.3) L 06/16/22 11:05 Hct 29.3 % (30.3-42.9) L 06/16/22 11:05 MCV 85 fl (79-97) 06/15/22 01:36 MCH 28 pg (28-32) 06/15/22 01:36 MCHC 33 % (30-34) 06/15/22 01:36 RDW 15.2 % (13.2-15.2) 06/15/22 01:36 Plt Count 229 K/mm3 (140-440) 06/15/22 01:36 Syphilis IgG/IgM Ab Nonreactive (NonReactive) 06/13/22 10:30 SARS-CoV-2 (PCR) Negative (Negative) 06/13/22 10:25 Blood Type AB POSITIVE 06/14/22 11:35 Antibody Screen Negative 06/14/22 11:35 Hutchinson/IV: Voiding Method Toilet Active Medications - Current Medications Current Medications: Generic Name Dose Route Start Last Admin Trade Name Freq PRN Reason Stop Dose Admin Acetaminophen 650 mg 06/15/22 19:10 Acetaminophen 325 Mg Tab PO Q4H PRN Fever >100.5/SINGH Hydrocodone Bitart/Acetaminophen 1 each 06/15/22 19:10 Hydrocodone/Acetaminophen 5-325 Mg Tab PO Q6H PRN Pain, Moderate (4-6) Butorphanol Tartrate 2 mg 06/15/22 00:21 Butorphanol 2 Mg/1 Ml Inj IV Q2H PRN Pain, Moderate(4-6) LABOR PAIN Carboprost Tromethamine 250 mcg 06/15/22 00:21 Carboprost Tromethamine 250 Mcg/1 Ml Inj IM ONCE PRN Uterine Bleeding Fentanyl 100 mcg 06/15/22 00:21 Fentanyl 100 Mcg/2 Ml Inj IV Q2H PRN Pain,Severe (7-10) LABOR PAIN Hydromorphone HCl 0.5 mg 06/15/22 20:26 Hydromorphone 1 Mg/1 Ml Inj IV 06/16/22 20:25 Q5M PRN BREAK Hydromorphone HCl 0.5 mg 06/15/22 20:26 06/16/22 03:37 Hydromorphone 1 Mg/1 Ml Inj IV 0.5 mg Q4H PRN Administration breakthrough pain > 7/10 Oxytocin/Sodium Chloride 30 units in 500 mls @ 2 mls/hr 06/15/22 01:00 06/15/22 12:30 Pitocin/Ns 30 Unit/500ml IV 2 ml/hr TITR LUCIUS 2 mls/hr Administration Protocol Lactated Ringer's 1,000 mls @ 125 mls/hr 06/15/22 00:30 06/16/22 03:41 Lactated Ringers IV 125 mls/hr DIRECT LUCIUS Administration Oxytocin/Sodium Chloride 30 units in 500 mls @ 40 mls/hr 06/15/22 01:00 Pitocin/Ns 30 Unit/500ml IV TITR LUCIUS Protocol Oxytocin/Sodium Chloride 30 units in 500 mls @ 40 mls/hr 06/15/22 20:00 Pitocin/Ns 30 Unit/500ml IV TITR LUCIUS Protocol Fentanyl/Bupivacaine/Sodium Chlor 200 mcg in 100 mls @ 8 mls/hr 06/15/22 21:00 Fentanyl-Bupiv 2 Mcg/Ml-0.125% EPIDURAL TITRATE LUCIUS Protocol Ibuprofen 600 mg 06/15/22 19:10 Ibuprofen 600 Mg Tab PO Q6H PRN Pain, Mild (1-3) Ibuprofen 800 mg 06/15/22 19:10 Ibuprofen 800 Mg Tab PO Q6H PRN Pain, Moderate (4-6) Ketorolac Tromethamine 15 mg 06/15/22 19:10 Ketorolac 30 Mg/1 Ml Inj IV 06/20/22 19:09 Q6H PRN Pain, Mild (1-3) Ketorolac Tromethamine 30 mg 06/15/22 19:10 06/16/22 07:05 Ketorolac 30 Mg/1 Ml Inj IV 06/20/22 19:09 30 mg Q6H PRN Administration Pain, Moderate (4-6) Magnesium Hydroxide 30 ml 06/15/22 19:10 Magnesium Hydroxide (Mom) Oral Liqd Udc PO QHS PRN Constip Unrelieved By Senna Methylergonovine Maleate 0.2 mg 06/15/22 00:21 Methylergonovine Maleate 0.2 Mg/Ml Vial IM ONCE PRN Uterine Bleeding Morphine Sulfate 2 mg 06/15/22 19:10 Morphine 2 Mg/1 Ml Inj IV Q4H PRN Pain, Moderate (4-6) Morphine Sulfate 4 mg 06/15/22 19:10 Morphine 4 Mg/1 Ml Inj IV Q4H PRN Pain , Severe (7-10) Morphine Sulfate 2.5 mg 06/15/22 20:26 Morphine 4 Mg/1 Ml Inj IV 06/16/22 20:25 Q15M PRN BREAK Multi-Ingredient Ointment 1 applic 06/15/22 19:10 Lanolin/Zinc/Dimethicone (Lansinoh) 7 Gm TP PRN PRN dryness/cracking Multivitamins/Iron/Calcium 1 each 06/16/22 10:00 [id number] Fumarate-Folic Acid Vit Tab PO QDAY LUCIUS Naloxone HCl 0.2 mg 06/15/22 20:26 Naloxone 0.4 Mg/1 Ml Inj IV Q2MIN PRN Res Rate </= 8 or 02 SAT < 92% Ondansetron HCl 4 mg 06/15/22 20:26 Ondansetron 4 Mg/2 Ml Inj IV Q8H PRN Nausea And Vomiting Promethazine HCl 25 mg 06/15/22 20:26 Promethazine 25 Mg Tab PO Q6H PRN Nausea And Vomiting Promethazine HCl 25 mg 06/15/22 20:26 Promethazine 25 Mg Rect Supp [place] Q6H PRN Nausea And Vomiting Senna 17.2 mg 06/15/22 19:10 Sennosides 8.6 Mg Tab PO QHS PRN Constipation Simethicone 80 mg 06/15/22 19:10 Simethicone 80 Mg Chew Tab PO Q6H PRN Gas pain Sodium Chloride 10 ml 06/15/22 20:00 Sodium Chloride 0.9% 10 Ml Flush Syringe IV PRN LUCIUS Sodium Chloride 10 ml 06/15/22 21:00 Sodium Chloride 0.9% 10 Ml Flush Syringe IV PRN PRN LINE FLUSH Terbutaline Sulfate 0.25 mg 06/15/22 00:21 Terbutaline 1 Mg/1 Ml Inj SUB-Q ONCE PRN Hyperstimulation/Hypertonicity Witch Madiha/Glycerin 1 each 06/15/22 19:10 Witch Madiha/ Glycerin Pad TP PRN PRN Hemorrhoids/cleansing/soothing
[2022-06-16] MEDS: PRENATAL VIT27-FE FUMARATE-FOLIC ACID VIT TAB PO SCH (11:38)
[2022-06-16] MEDS: IBUPROFEN 800 MG TAB PO PRN (11:38)
--- NOTE | 2022-06-16 16:21 | Cat Scan Report ---
CT CHEST WITHOUT CONTRAST INDICATION / CLINICAL INFORMATION: Prolonged dyspnea post covid. TECHNIQUE: Axial CT images were obtained through the chest without contrast. All CT scans at this [facility] ation are performed using CT dose reduction for ALARA by means of automated exposure control. COMPARISON: None available. FINDINGS: HEART: Heart size appears borderline. No pericardial effusion. CORONARY ARTERY CALCIFICATION: Absent -- None. THORACIC AORTA: No significant abnormality. MEDIASTINUM / BOB: No significant abnormality. PLEURA: No pleural effusion. No pneumothorax. LUNGS: There appears to be segmental atelectasis in the superior and medial right lower lobe. Minor a telectatic changes are also noted in the posterior left lower lobe. Otherwise the lungs are clear. No evidence for infiltrate, mass or interstitial disease. Chronic Covid findings are not clearly identi fied. ADDITIONAL FINDINGS: None. UPPER ABDOMEN: No significant abnormality. SKELETAL SYSTEM: No significant abnormality. IMPRESSION: 1. Borderline cardiomegaly. 2. Mild atelectatic changes are identified in both lower lobes, right greater than left. No convincin g findings of postacute Covid syndrome. Signer Name: Mateo Sun Jr, MD Signed: 06/16/2022 4:17 PM Workstation Name: [id number]
[2022-06-17 06:31] LABS: Hematocrit 31.4 % (30.3-42.9); Hemoglobin 10.2 gm/dl (10.1-14.3); Mean Corpuscular HGB Conc 32 % (30-34); Mean Corpuscular Volume 87 fl (79-97); Platelet Count 208 K/mm3 (140-440); Red Blood Count 3.62 M/mm3 (3.65-5.03); Red Cell Distribution Width 14.9 % (13.2-15.2)
[2022-06-17 06:40] LABS: Blood Urea Nitrogen 5 mg/dL (7-17); Calcium 8.9 mg/dL (8.4-10.2); Hemolysis Index 0
[2022-06-17 06:41] LABS: BUN/Creatinine Ratio 8
--- NOTE | 2022-06-17 07:22 | Post Anesthesia Evaluation ---
- Post Anesthesia Evaluation Patient Participated: Yes Airway Patent: Yes Stable Respiratory Function: Yes Nausea/Vomiting: No Temp > 96.8F: Yes Pain Manageable: Yes Adequeate Hydration: Yes Anesthesia Complications: No Block Receding Appropriately: Yes Patient on Ventilator: No
[2022-06-17] MEDS: IBUPROFEN 800 MG TAB PO PRN ×2 (08:06→22:09)
[2022-06-17] MEDS: PRENATAL VIT27-FE FUMARATE-FOLIC ACID VIT TAB PO SCH (09:33)
--- NOTE | 2022-06-17 10:14 | Progress Note ---
Assessment and Plan A: Repeat section after failed TOLAC stable, no distress noted P: continue PP care per unit protocol awaiting Echo report Local Area Network Administrator IMS anticipated discharge home in 24 hrs Subjective - Subjective Date of service: 06/17/22 Principal diagnosis: Repeat after failed TOLAC, Respiratory distress Patient reports: appetite normal, voiding normally, ambulating normally, other (NO flatus or BM) [place]: doing well, nursing well, bottle feeding Objective - Vital Signs Latest vital signs: Vital Signs Temp Pulse Resp BP BP Pulse Ox Pulse Ox 06/17/22 08:13 98.4 F 99 H 18 125/79 96 06/17/22 07:58 98 06/16/22 23:55 99.0 F 100 H 18 132/79 94 06/16/22 20:29 18 06/16/22 16:37 124/76 06/16/22 15:45 98 F 100 H 20 99 06/16/22 13:15 98.9 F 99 H 20 106/65 98 06/16/22 12:00 97.4 F L 06/16/22 11:00 102 H 24 107/59 96 Intake and Output 06/16/22 06/17/22 06/17/22 23:59 07:59 15:59 Intake Total 320 240 120 Output Total 500 Balance -180 240 120 Intake: Oral 320 120 Intake, Free Water 240 Output: Urine 500 Void 500 Other: Total, Intake Amount 320 120 Total, Output Amount 500 # Voids Void 2 1 - Exam Breasts: Present: normal Cardiovascular: Present: Regular rate Lungs: Present: Clear to auscultation, Normal air movement Abdomen: Present: normal appearance, soft, tenderness Uterus: Present: normal, firm, tenderness, fundal height below umbilicus Extremities: Present: normal Deep Tendon Reflex Grade: Normal +2 Incision: Present: normal, dry, intact - Labs Labs: Abnormal lab results 06/16/22 06/17/22 06/17/22 Range/Units 11:05 05:29 05:29 RBC 3.62 L (3.65-5.03) M/mm3 Hgb 9.8 L (10.1-14.3) gm/dl Hct 29.3 L (30.3-42.9) % BUN 5 L (7-17) mg/dL
--- NOTE | 2022-06-17 14:43 | Progress Note ---
Assessment and Plan 36 y/o obese female, s/p admitted for respiratory failure follow post administration spinal anesthesia requiring intubation. Pulm danielle stable. No new recs. Will arrange out patient follow up. No objection to discharge from pulmonary standpoint. 1. Needs outpatient follow up for full PFT and JACKSON screening given obesity and neck size 2. Will obtain noncontrast CT of chest here to get a better look at lung parenchyma 3. 2D echo to evaluate heart size and function, along with any evidence of pulmonary HTN 4. Weaned to room air. Suggest walk test prior to discharge 5. Incentive spirometry to bedside for use. Thanks for consult, will continue to follow. Subjective Date of service: 06/17/22 Principal diagnosis: Repeat after failed TOLAC, Respiratory distress Interval history: Echo normal, CT scan normal, just some atelectasis. Still on room air Objective Vital Signs - 12hr 06/17/22 06/17/22 07:58 08:13 Temperature 98.4 F Pulse Rate 99 H Respiratory 18 Rate Blood Pressure 125/79 O2 Sat by Pulse 96 Oximetry O2 Sat by Pulse 98 Oximetry [ Anterior Bilateral Throughout] Constitutional: no acute distress, alert, other (morbidly obese) Eyes: non-icteric ENT: oropharynx moist Neck: supple, other (large in circumference) Effort: normal Ascultation: Bilateral: clear Percussion: Bilateral: not dull Tactile fremitus: Bilateral: normal Cardiovascular: regular rate and rhythm Gastrointestinal: other (post surgical changes) CBC and BMP: 06/17/22 05:29 06/17/22 05:29 Abnormal lab findings: Abnormal Labs 06/16/22 06/17/22 06/17/22 11:05 05:29 05:29 RBC 3.62 L Hgb 9.8 L Hct 29.3 L BUN 5 L
--- NOTE | 2022-06-17 16:08 | Progress Note ---
Assessment and Plan Assessment and plan: 36 YO Female with Obesity S/P C Section admitted directly to [facility]. Patient was undergoing spinal anesthesia in preparation for section. Shortly after her spinal anesthesia was administered the patient reported shortness of breath. Patient found to have a pulse oximetry in the 80s. Patient's subsequently intubated and placed on ventilatory support. Patient extubated and found to have respiratory distress. Patient placed on supplemental oxygen with mild improvement in symptoms. Patient admitted directly to ICU due to increased risk of worsening symptoms after medical stabilization. No reported nursing events. No reports of fever, chills, chest pain, palpitation, adductive cough, skin rash, recent contact, known exposure to COVID-19. Past History Past Medical History: other (see hpi) Past Surgical History: cholecystectomy, Social history: no significant social history Family history: hypertension Acute hypoxic respiratory failure secondary anesthesia Acute Blood loss Anemia- Expected post Obesity hypoventilation syndrome day 2 status post Morbid obesity BMI 47.6 History of COVID-19 Plan Reviewed labs patient clinically stable at this time. Reinforced outpatient evaluation for PFT and JACKSON screening. CT chest did not show any convincing evidence of post COVID syndrome. Discharge when okay with [facility] team. DVT and GI prophylaxis Counseling on obesity and weight loss discussed 15 tenderness patient verbalized understanding History Interval history: Patient seen and examined, resting comfortable, no new complaints. No new co mplaints. Hospitalist Physical - Physical exam Narrative exam: VITAL SIGNS: Reviewed. GENERAL: The patient appears normally developed, obese vital signs as documented. HEAD: No signs of head trauma. EYES: Pupils are equal. Extraocular motions intact. EARS: Hearing grossly intact. MOUTH: Oropharynx is normal. NECK: No adenopathy, no JVD. CHEST: Chest with clear breath sounds bilaterally. No wheezes, rales, or r honchi. CARDIAC: Regular rate and rhythm. S1 and S2, without murmurs, gallops, or rubs. VASCULAR: No Edema. Peripheral pulses normal and equal in all extremities. ABDOMEN: (Appropriate tender, incision clean dry and intact) at site of soft, non distended. No rebound or guarding, and no masses palpated. Bowel Sounds normal. MUSCULOSKELETAL: Good range of motion of all major joints. Extremities without clubbing, cyanosis or edema. NEUROLOGIC EXAM: Alert and oriented x 3 No focal sensory or strength deficits. Speech normal. Follows commands. PSYCHIATRIC: Mood normal. SKIN: detail exam as documented in skin assessment - Constitutional Vitals: Temp Pulse Resp BP Pulse Ox 98.4 F 99 H 18 125/79 96 06/17/22 08:13 06/17/22 08:13 06/17/22 08:13 06/17/22 08:13 06/17/22 08:13 General appearance: Present: mild distress, obese Results - Labs CBC & Chem 7: 06/17/22 05:29 06/17/22 05:29 Labs: Laboratory Last Values WBC 9.0 K/mm3 (4.5-11.0) 06/17/22 05:29 RBC 3.62 M/mm3 (3.65-5.03) L 06/17/22 05:29 Hgb 10.2 gm/dl (10.1-14.3) 06/17/22 05:29 Hct 31.4 % (30.3-42.9) 06/17/22 05:29 MCV 87 fl (79-97) 06/17/22 05:29 MCH 28 pg (28-32) 06/17/22 05:29 MCHC 32 % (30-34) 06/17/22 05:29 RDW 14.9 % (13.2-15.2) 06/17/22 05:29 Plt Count 208 K/mm3 (140-440) 06/17/22 05:29 Sodium 138 mmol/L (137-145) 06/17/22 05:29 Potassium 4.2 mmol/L (3.6-5.0) 06/17/22 05:29 Chloride 101.8 mmol/L (98-107) 06/17/22 05:29 Carbon Dioxide 25 mmol/L (22-30) 06/17/22 05:29 Anion Gap 15 mmol/L 06/17/22 05:29 BUN 5 mg/dL (7-17) L 06/17/22 05:29 Creatinine 0.6 mg/dL (0.6-1.2) 06/17/22 05:29 Estimated GFR > 60 ml/min 06/17/22 05:29 BUN/Creatinine Ratio 8 % 06/17/22 05:29 Glucose 80 mg/dL (65-100) 06/17/22 05:29 Calcium 8.9 mg/dL (8.4-10.2) 06/17/22 05:29 Syphilis IgG/IgM Ab Nonreactive (NonReactive) 06/13/22 10:30 SARS-CoV-2 (PCR) Negative (Negative) 06/13/22 10:25 Blood Type AB POSITIVE 06/14/22 11:35 Antibody Screen Negative 06/14/22 11:35 Hutchinson/IV: Voiding Method Toilet Active Medications - Current Medications Current Medications: Generic Name Dose Route Start Last Admin Trade Name Freq PRN Reason Stop Dose Admin Acetaminophen 650 mg 06/15/22 19:10 Acetaminophen 325 Mg Tab PO Q4H PRN Fever >100.5/SINGH Hydrocodone Bitart/Acetaminophen 1 each 06/15/22 19:10 Hydrocodone/Acetaminophen 5-325 Mg Tab PO Q6H PRN Pain, Moderate (4-6) Butorphanol Tartrate 2 mg 06/15/22 00:21 Butorphanol 2 Mg/1 Ml Inj IV Q2H PRN Pain, Moderate(4-6) LABOR PAIN Carboprost Tromethamine 250 mcg 06/15/22 00:21 Carboprost Tromethamine 250 Mcg/1 Ml Inj IM ONCE PRN Uterine Bleeding Fentanyl 100 mcg 06/15/22 00:21 Fentanyl 100 Mcg/2 Ml Inj IV Q2H PRN Pain,Severe (7-10) LABOR PAIN Hydromorphone HCl 0.5 mg 06/15/22 20:26 06/16/22 20:29 Hydromorphone 1 Mg/1 Ml Inj IV 0.5 mg Q4H PRN Administration breakthrough pain > 7/10 Oxytocin/Sodium Chloride 30 units in 500 mls @ 2 mls/hr 06/15/22 01:00 06/15/22 12:30 Pitocin/Ns 30 Unit/500ml IV 2 ml/hr TITR LUCIUS 2 mls/hr Administration Protocol Lactated Ringer's 1,000 mls @ 125 mls/hr 06/15/22 00:30 06/16/22 03:41 Lactated Ringers IV 125 mls/hr DIRECT LUCIUS Administration Oxytocin/Sodium Chloride 30 units in 500 mls @ 40 mls/hr 06/15/22 01:00 Pitocin/Ns 30 Unit/500ml IV TITR LUCIUS Protocol Oxytocin/Sodium Chloride 30 units in 500 mls @ 40 mls/hr 06/15/22 20:00 Pitocin/Ns 30 Unit/500ml IV TITR [facility] Protocol Fentanyl/Bupivacaine/Sodium Chlor 200 mcg in 100 mls @ 8 mls/hr 06/15/22 21:00 Fentanyl-Bupiv 2 Mcg/Ml-0.125% EPIDURAL TITRATE [facility] Protocol Ibuprofen 600 mg 06/15/22 19:10 Ibuprofen 600 Mg Tab PO Q6H PRN Pain, Mild (1-3) Ibuprofen 800 mg 06/15/22 19:10 06/17/22 08:06 Ibuprofen 800 Mg Tab PO 800 mg Q6H PRN Administration Pain, Moderate (4-6) Ketorolac Tromethamine 15 mg 06/15/22 19:10 Ketorolac 30 Mg/1 Ml Inj IV 06/20/22 19:09 Q6H PRN Pain, Mild (1-3) Ketorolac Tromethamine 30 mg 06/15/22 19:10 06/16/22 07:05 Ketorolac 30 Mg/1 Ml Inj IV 06/20/22 19:09 30 mg Q6H PRN Administration Pain, Moderate (4-6) Magnesium Hydroxide 30 ml 06/15/22 19:10 Magnesium Hydroxide (Mom) Oral Liqd Udc PO QHS PRN Constip Unrelieved By Senna Methylergonovine Maleate 0.2 mg 06/15/22 00:21 Methylergonovine Maleate 0.2 Mg/Ml Vial IM ONCE PRN Uterine Bleeding Morphine Sulfate 2 mg 06/15/22 19:10 Morphine 2 Mg/1 Ml Inj IV Q4H PRN Pain, Moderate (4-6) Morphine Sulfate 4 mg 06/15/22 19:10 Morphine 4 Mg/1 Ml Inj IV Q4H PRN Pain , Severe (7-10) Multi-Ingredient Ointment 1 applic 06/15/22 19:10 Lanolin/Zinc/Dimethicone (Lansinoh) 7 Gm TP PRN PRN dryness/cracking Multivitamins/Iron/Calcium 1 each 06/16/22 10:00 06/17/22 09:33 Apm57-Lm Fumarate-Folic Acid Vit Tab PO 1 each QDAY LUCIUS Administration Naloxone HCl 0.2 mg 06/15/22 20:26 Naloxone 0.4 Mg/1 Ml Inj IV Q2MIN PRN Res Rate </= 8 or 02 SAT < 92% Ondansetron HCl 4 mg 06/15/22 20:26 Ondansetron 4 Mg/2 Ml Inj IV Q8H PRN Nausea And Vomiting Promethazine HCl 25 mg 06/15/22 20:26 Promethazine 25 Mg Tab PO Q6H PRN Nausea And Vomiting Promethazine HCl 25 mg 06/15/22 20:26 Promethazine 25 Mg Rect Supp ND Q6H PRN Nausea And Vomiting Senna 17.2 mg 06/15/22 19:10 Sennosides 8.6 Mg Tab PO QHS PRN Constipation Simethicone 80 mg 06/15/22 19:10 Simethicone 80 Mg Chew Tab PO Q6H PRN Gas pain Sodium Chloride 10 ml 06/15/22 20:00 Sodium Chloride 0.9% 10 Ml Flush Syringe IV PRN LUCIUS Sodium Chloride 10 ml 06/15/22 21:00 Sodium Chloride 0.9% 10 Ml Flush Syringe IV PRN PRN LINE FLUSH Terbutaline Sulfate 0.25 mg 06/15/22 00:21 Terbutaline 1 Mg/1 Ml Inj SUB-Q ONCE PRN Hyperstimulation/Hypertonicity Witch Madiha/Glycerin 1 each 06/15/22 19:10 Witch Madiha/ Glycerin Pad TP PRN PRN Hemorrhoids/cleansing/soothing
[2022-06-18] MEDS: IBUPROFEN 800 MG TAB PO PRN (07:08)
[2022-06-18] MEDS: PRENATAL VIT27-FE FUMARATE-FOLIC ACID VIT TAB PO SCH (10:25)
--- NOTE | 2022-06-18 11:04 | Progress Note ---
Assessment and Plan Assessment and plan: 36 YO Female with Obesity S/P C Section admitted directly to [facility]. Patient was undergoing spinal anesthesia in preparation for section. Shortly after her spinal anesthesia was administered the patient reported shortness of breath. Patient found to have a pulse oximetry in the 80s. Patient's subsequently intubated and placed on ventilatory support. Patient extubated and found to have respiratory distress. Patient placed on supplemental oxygen with mild improvement in symptoms. Patient admitted directly to ICU due to increased risk of worsening symptoms after medical stabilization. No reported nursing events. No reports of fever, chills, chest pain, palpitation, adductive cough, skin rash, recent contact, known exposure to COVID-19. Past History Past Medical History: other (see hpi) Past Surgical History: cholecystectomy, Social history: no significant social history Family history: hypertension Acute hypoxic respiratory failure secondary anesthesia Acute Blood loss Anemia- Expected post Obesity hypoventilation syndrome day 2 status post Morbid obesity BMI 47.6 History of COVID-19 Plan Clinically stable for discharge. Reviewed labs patient clinically stable at this time. Reinforced outpatient evaluation for PFT and JACK[place] screening. CT chest did not show any convincing evidence of post COVID syndrome. Discharge when okay with NURSE ADVISOR team. DVT and GI prophylaxis Counseling on obesity and weight loss discussed 15 tenderness patient verbalized understanding History Interval history: Patient seen and examined, resting comfortable, no new complaints. She informs me she is awaiting discharge today Hospitalist Physical - Physical exam Narrative exam: VITAL SIGNS: Reviewed. GENERAL: The patient appears normally developed, obese vital signs as documented. HEAD: No signs of head trauma. EYES: Pupils are equal. Extraocular motions intact. EARS: Hearing grossly intact. MOUTH: Oropharynx is normal. NECK: No adenopathy, no JVD. CHEST: Chest with clear breath sounds bilaterally. No wheezes, rales, or rhonchi. CARDIAC: Regular rate and rhythm. S1 and S2, without murmurs, gallops, or rubs. VASCULAR: No Edema. Peripheral pulses normal and equal in all extremities. ABDOMEN: (Appropriate tender, incision clean dry and intact) at site of soft, non distended. No rebound or guarding, and no masses palpated. Bowel Sounds normal. MUSCULOSKELETAL: Good range of motion of all major joints. Extremities without clubbing, cyanosis or edema. NEUROLOGIC EXAM: Alert and oriented x 3 No focal sensory or strength deficits. Speech normal. Follows commands. PSYCHIATRIC: Mood normal. SKIN: detail exam as documented in skin assessment - Constitutional Vitals: Temp Pulse Resp BP Pulse Ox 98.6 F 95 H 20 124/76 98 06/18/22 08:08 06/18/22 08:08 06/18/22 08:08 06/18/22 08:08 06/18/22 08:30 General appearance: Present: mild distress, obese Results - Labs CBC & Chem 7: 06/17/22 05:29 06/17/22 05:29 Labs: Laboratory Last Values WBC 9.0 K/mm3 (4.5-11.0) 06/17/22 05:29 RBC 3.62 M/mm3 (3.65-5.03) L 06/17/22 05:29 Hgb 10.2 gm/dl (10.1-14.3) 06/17/22 05:29 Hct 31.4 % (30.3-42.9) 06/17/22 05:29 MCV 87 fl (79-97) 06/17/22 05:29 MCH 28 pg (28-32) 06/17/22 05:29 MCHC 32 % (30-34) 06/17/22 05:29 RDW 14.9 % (13.2-15.2) 06/17/22 05:29 Plt Count 208 K/mm3 (140-440) 06/17/22 05:29 Sodium 138 mmol/L (137-145) 06/17/22 05:29 Potassium 4.2 mmol/L (3.6-5.0) 06/17/22 05:29 Chloride 101.8 mmol/L (98-107) 06/17/22 05:29 Carbon Dioxide 25 mmol/L (22-30) 06/17/22 05:29 Anion Gap 15 mmol/L 06/17/22 05:29 BUN 5 mg/dL (7-17) L 06/17/22 05:29 Creatinine 0.6 mg/dL (0.6-1.2) 06/17/22 05:29 Estimated GFR > 60 ml/min 06/17/22 05:29 BUN/Creatinine Ratio 8 % 06/17/22 05:29 Glucose 80 mg/dL (65-100) 06/17/22 05:29 Calcium 8.9 mg/dL (8.4-10.2) 06/17/22 05:29 Syphilis IgG/IgM Ab Nonreactive (NonReactive) 06/13/22 10:30 SARS-CoV-2 (PCR) Negative (Negative) 06/13/22 10:25 Blood Type AB POSITIVE 06/14/22 11:35 Antibody Screen Negative 06/14/22 11:35 Htuchinson/IV: Voiding Method Toilet Active Medications - Current Medications Current Medications: Generic Name Dose Route Start Last Admin Trade Name Freq PRN Reason Stop Dose Admin Acetaminophen 650 mg 06/15/22 19:10 Acetaminophen 325 Mg Tab PO Q4H PRN Fever >100.5/SINGH Hydrocodone Bitart/Acetaminophen 1 each 06/15/22 19:10 Hydrocodone/Acetaminophen 5-325 Mg Tab PO Q6H PRN Pain, Moderate (4-6) Butorphanol Tartrate 2 mg 06/15/22 00:21 Butorphanol 2 Mg/1 Ml Inj IV Q2H PRN Pain, Moderate(4-6) LABOR PAIN Carboprost Tromethamine 250 mcg 06/15/22 00:21 Carboprost Tromethamine 250 Mcg/1 Ml Inj IM ONCE PRN Uterine Bleeding Fentanyl 100 mcg 06/15/22 00:21 Fentanyl 100 Mcg/2 Ml Inj IV Q2H PRN Pain,Severe (7-10) LABOR PAIN Hydromorphone HCl 0.5 mg 06/15/22 20:26 06/16/22 20:29 Hydromorphone 1 Mg/1 Ml Inj IV 0.5 mg Q4H PRN Administration breakthrough pain > 7/10 Oxytocin/Sodium Chloride 30 units in 500 mls @ 2 mls/hr 06/15/22 01:00 06/15/22 12:30 Pitocin/Ns 30 Unit/500ml IV 2 ml/hr TITR LUCIUS 2 mls/hr Administration Protocol Lactated Ringer's 1,000 mls @ 125 mls/hr 06/15/22 00:30 06/16/22 03:41 Lactated Ringers IV 125 mls/hr DIRECT LUCIUS Administration Oxytocin/Sodium Chloride 30 units in 500 mls @ 40 mls/hr 06/15/22 01:00 Pitocin/Ns 30 Unit/500ml IV TITR LUCIUS Protocol Oxytocin/Sodium Chloride 30 units in 500 mls @ 40 mls/hr 08/31/22 20:00 Pitocin/Ns 30 Unit/500ml IV TITR [facility] Protocol Fentanyl/Bupivacaine/Sodium Chlor 200 mcg in 100 mls @ 8 mls/hr 06/15/22 21:00 Fentanyl-Bupiv 2 Mcg/Ml-0.125% EPIDURAL TITRATE [facility] Protocol Ibuprofen 600 mg 06/15/22 19:10 Ibuprofen 600 Mg Tab PO Q6H PRN Pain, Mild (1-3) Ibuprofen 800 mg 06/15/22 19:10 06/18/22 07:08 Ibuprofen 800 Mg Tab PO 800 mg Q6H PRN Administration Pain, Moderate (4-6) Ketorolac Tromethamine 15 mg 06/15/22 19:10 Ketorolac 30 Mg/1 Ml Inj IV 06/20/22 19:09 Q6H PRN Pain, Mild (1-3) Ketorolac Tromethamine 30 mg 06/15/22 19:10 06/16/22 07:05 Ketorolac 30 Mg/1 Ml Inj IV 06/20/22 19:09 30 mg Q6H PRN Administration Pain, Moderate (4-6) Magnesium Hydroxide 30 ml 06/15/22 19:10 06/18/22 07:08 Magnesium Hydroxide (Mom) Oral Liqd Udc PO 30 ml QHS PRN Administration Constip Unrelieved By Senna Methylergonovine Maleate 0.2 mg 06/15/22 00:21 Methylergonovine Maleate 0.2 Mg/Ml Vial IM ONCE PRN Uterine Bleeding Morphine Sulfate 2 mg 06/15/22 19:10 Morphine 2 Mg/1 Ml Inj IV Q4H PRN Pain, Moderate (4-6) Morphine Sulfate 4 mg 06/15/22 19:10 Morphine 4 Mg/1 Ml Inj IV Q4H PRN Pain , Severe (7-10) Multi-Ingredient Ointment 1 applic 06/15/22 19:10 06/17/22 22:09 Lanolin/Zinc/Dimethicone (Lansinoh) 7 Gm TP 1 applic PRN PRN Administration dryness/cracking Multivitamins/Iron/Calcium 1 each 06/16/22 10:00 06/18/22 10:25 [id number] Fumarate-Folic Acid Vit Tab PO 1 each QDAY LUCIUS Administration Naloxone HCl 0.2 mg 06/15/22 20:26 Naloxone 0.4 Mg/1 Ml Inj IV Q2MIN PRN Res Rate </= 8 or 02 SAT < 92% Ondansetron HCl 4 mg 06/15/22 20:26 Ondansetron 4 Mg/2 Ml Inj IV Q8H PRN Nausea And Vomiting Promethazine HCl 25 mg 06/15/22 20:26 Promethazine 25 Mg Tab PO Q6H PRN Nausea And Vomiting Promethazine HCl 25 mg 06/15/22 20:26 Promethazine 25 Mg Rect Supp NV Q6H PRN Nausea And Vomiting Senna 17.2 mg 06/15/22 19:10 Sennosides 8.6 Mg Tab PO QHS PRN Constipation Simethicone 80 mg 06/15/22 19:10 Simethicone 80 Mg Chew Tab PO Q6H PRN Gas pain Sodium Chloride 10 ml 06/15/22 20:00 Sodium Chloride 0.9% 10 Ml Flush Syringe IV PRN LUCIUS Sodium Chloride 10 ml 06/15/22 21:00 Sodium Chloride 0.9% 10 Ml Flush Syringe IV PRN PRN LINE FLUSH Terbutaline Sulfate 0.25 mg 06/15/22 00:21 Terbutaline 1 Mg/1 Ml Inj SUB-Q ONCE PRN Hyperstimulation/Hypertonicity Witch Madiha/Glycerin 1 each 06/15/22 19:10 Witch Madiha/ Glycerin Pad TP PRN PRN Hemorrhoids/cleansing/soothing
[2022-06-18 12:29] VITALS: BP 111/68
== END 2022-06-18 12:40 | disposition home or self-care (01) | DRG 765 ==
LOC: APU 09:53 → LD 06-15 02:30 → APU 06-15 17:30 → IMCU 06-15 20:25 → OB 06-16 13:15
PROVIDERS: ADMIT Obstetrics & Gynecology; ATTEND Obstetrics & Gynecology
PROC: 0UB70ZZ Excision of Bilateral Fallopian Tubes, Open Approach (ICD-10-PCS; principal; 2022-06-15)
PROC: 10D00Z1 Extraction of Products of Conception, Low, Open Approach (ICD-10-PCS; 2022-06-15)
PROC: 5A09357 Assistance with Respiratory Ventilation, Less than 24 Consecutive Hours, Continuous Positive Airway Pressure (ICD-10-PCS; 2022-06-15)
DX: O34.211 Maternal care for low transverse scar from previous cesarean delivery (principal); J96.01 Acute respiratory failure with hypoxia; O77.0 Labor and delivery complicated by meconium in amniotic fluid; D62 Acute posthemorrhagic anemia; E66.2 Morbid (severe) obesity with alveolar hypoventilation; Z3A.39 39 weeks gestation of pregnancy; Z37.0 Single live birth; Z20.822 Contact with and (suspected) exposure to COVID-19; O99.214 Obesity complicating childbirth; O99.62 Diseases of the digestive system complicating childbirth; K66.0 Peritoneal adhesions (postprocedural) (postinfection); O99.53 Diseases of the respiratory system complicating the puerperium; O90.81 Anemia of the puerperium; Z82.49 Family history of ischemic heart disease and other diseases of the circulatory system; Z90.49 Acquired absence of other specified parts of digestive tract; Z83.3 Family history of diabetes mellitus; O66.41 Failed attempted vaginal birth after previous cesarean delivery; Z30.2 Encounter for sterilization
CPT/HCPCS: 36415; 71045; 71250; 76816; 80048; 85014; 85018; 85027; 86592; 86850; 86900; 86901; 88302; 93306; 94760; G0378; J3490; C8929; J0330; J0690; J1170; J1885; J2370; J2405; J2590; J2704; J2765; J3010; J7120; U0003